=== PATIENT | male | born 1980 | race Caucasian/White ===

== ENCOUNTER 2022-09-05 14:21 | Emergency (ER) | payer OTHER ==
--- OUTSIDE RECORDS SUMMARY | 2022-09-05 14:29 | XMS REPORT | Continuity of Care Document ---
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 NO MANDIFF) SCAN (test code = NO SCAN) NEUT% (test code = 64.4 % 40-75 NEUT%) LYMPH% (test code = 21.0 % 24-44 L LYMPH%) MONO% (test code = 12.1 % 0-13 MONO%) EOS% (test code = 1.6 % 0-4 EOS%) BASO % (test code = 0.7 % 0-2 BASO%) IG (test code = IG) 0 % 0-1 IG% (test code = 0.2 % 0-1 IG% = Metam yelocytes, IG%) Myelocytes, and Promyelocytes. (Immature neutr ophils not including " bands".) > 3% IG indic ates risk of sepsis NRBC% (test code = 0 /100 WBC NRBC%) ABS NEUT (test code 6.3 K/UL 1.2-7.2 = NEUT) COVID SYMPTOMATIC ER [id number] 02:49:00 Test Item Value Reference Range Interpretation Comments CORONAVIRUS (COVID-19)BY PCR (test NEGATIVE code = [id number]) [id number] 09:12:00 Test Item Value Reference Range Interpretation Comments Sodium (test code = 137 mmol/l 137-145 NA) Potassium (test 4.5 mmol/l 3.5-5.1 code = K) Chloride (test code 106 mmol/l 98-107 = CL) Calcium (test code 9.0 mg/dl 8.5-10.1 = CALC) CO2 (test code = 25 mmol/l 21-32 CO2) Glucose (test code 103 mg/dl 74-106 = GLU) BUN (test code = 15.0 mg/dl 7.0-18.0 BUN) Creatinine (test 1.3 mg/dl 0.5-1.3 code = CREA) T Protein (test 7.6 gm/dl 6.4-8.2 code = TP) Albumin (test code 3.8 gm/dl 3.4-5.0 = ALB) A/G Ratio (test 1.0 % 1.1-2.2 L code = AGRAT) AST (SGOT) (test 20 U/L 15-37 code = AST) ALT (SGPT) (test 50 U/L 13-61 code = ALT) Alkaline Phos (test 131 U/L 45-117 H code = ALKP) Total Bilirubin 0.6 mg/dl 0.2-1.0 (test code = TBIL) Globulin (test code 3.8 gm/dl 2.3-3.5 H = GLOBU) Calcium, Corrected 9.2 mg/dl 8.4-10.2 Various f ormulas exist (test code = for corrected s vanna CALCCORR) calcium results , each yielding differ ent values. This co rrected result was base d on the formula: Co rrected Calcium = Serum Calcium + [0.8 * ( 4 - SerumAlbumin)] EGFR if >60 Finnish (test code mL/min/1.73m\\ = EGFRAA) S\\2 EGFR if Non- >60 Estimate d Glomerular Finnish (test code mL/min/1.73m\\ Filtrat ion Rate (eGFR) = EGFRNA) S\\2 Reference Inter vals Decision Points for 18 years and older and average body ma ss: >= 60 Does not exc lude kidney disease. 30 - 59 Suggests mod erate chronic kidney disease and indicates t he need for further investigation including asses sment of proteinuria and cardiovascular factors. < 30 U sually indicates a nee d for referral for assessment and management of c hronic kidney failure. STLMLCBC WITH AUTO [id number] 09:10:00 Test Item Value Reference Range Interpretation Comments WBC (test code = 6.79 10\\S\\3/ul 4.80-10.80 WBC) RBC (test code = 5.59 10\\S\\6/ul 4.70-6.10 RBC) Hemoglobin (test 18.2 gm/dl 14.0-18.0 H code = HGB) Hematocrit (test 52.2 % 42.0-50.0 H code = HCT) MCV (test code = 93.4 fL 80.0-94.0 MCV) MCH (test code = 32.6 pg 27.0-31.0 H MCH) MCHC (test code = 34.9 gm/dl 33.0-37.0 MCHC) RDW (test code = 13.4 % 11.5-14.5 RDWVC) Platelet (test code 216 10\\S\\3/ul 130-400 = PLT) MPV (test code = 11.1 fL 7.4-10.4 A "NOT MEASUR ED" MPV) RESULTS ARE DIS PLAYED WHEN THE INSTRU MENT HAS A SUPPRESSE D OR UNREPORTABLE RE SULT. THIS WILL MOST OFTEN HAPPEN WITH THE MPV WHEN THERE IS A N ABNORMAL PLATEL ET DISTRIBUTION DU E TO A CRITICAL LOW VA LUE OR PLATELET CLUMPI NG. THE RDW MAY BE SUPPRESSED IF T HERE ARE MULTIPLE PE AKS PRESENT ON THE RBC HISTOGRAM. IN T HIS CASE, A MANUAL REVIEW OF THE SLIDE WI LL BE PERFORMED, AND RBC MORPHOLOGY WILL BE NOTED ON THE RE PORT. NE% (test code = 49.1 % 42.0-75.0 NE) LY% (test code = 35.1 % 13.0-42.0 LY) MO% (test code = 11.9 % 4.0-14.0 MO) EO% (test code = 2.9 % 1.0-5.0 EO) BA% (test code = 0.9 % 0.0-3.0 BA) IG% (test code = 0.1 % 0.0-0.4 IG%) NRBC, Auto (test 0 /100WBC 0-2 code = NRBC_AUTO) STLMLTSH (Ultra Sensitive)2021-01-12 09:10:00 Test Item Value Reference Range Interpretation Comments TSH (test code = TSH) 0.59 mIU/L 0.35-3.74 STLMLRPR FOR SERUM [id number] 23:41:00 Test Item Value Reference Range Interpretation Comments RPR (test code = NONREACTIVE NONREACTIVE NR = NON- REACTIVE R = RPR) REACTIVE THYROID STIMULATION [id number] 10:15:00 Test Item Value Reference Range Interpretation Comments TSH (test code = TSH) 0.73 UIU/ML 0.465-4.68 % HEMOGLOBIN A1C (GLYCATED)2020-06-15 10:13:00 Test Item Value Reference Range Interpretation Comments HEMOGLOBIN A1C (test 4.8 % 0-6 THERAP EUTIC TARGET FOR code = GLYCO-) THE TREATMENT OF DIABETES MELL US PATIENTS IS < 7 % HBA1C. [employer] [facility] [employer] DIABETES CARE 2002;25:S33-S49 HEPATITIS C ANTIBODY [id number] 10:02:00 Test Item Value Reference Range Interpretation Comments SCRN HCV (test code NEGATIVE NEGATIVE Hepatiti s C Antibody test = SCRN HCV) is for screenin g purposes only. All react therese will be confirmed by additional test ing. ER SCREEN FOR HIV 10:02:00 Test Item Value Reference Range Interpretation Comments HIV 1/2 AB (test NEGATIVE NEGATIVE This test i s used for code = SCRN HIV) SCREENING p urposes only. All reactive re sults are prelimenary and confirmation re sults will follow. LIPID [id number] 09:30:00 Test Item Value Reference Range Interpretation Comments CHOLEST (test code = 175 MG/DL 0-200 CHOLEST) TRIGLYCE (test code = 164 MG/DL 0-150 H TRIGLYCE) HDL (test code = HDL) 41 MG/DL 30-65 NEGATI VE RISK FACTOR FOR HEART DISEA SE IF HDL >/=60 mg/dl MAJOR RISK FACTOR FOR HEART DISEASE IF HDL <40 mg/dL CALC LDL (test code = 101 MG/DL See_Comment H [Auto mated message] CALC LDL) The system e27 generated this result transmitted ref erence range: -100. Th e reference range was not used to interpr et this result as normal/abnormal . Specimen source [id number] 22:32:00 Test Item Value Reference Range Interpretation Comments Respiratory Virus Source Nasopharyngeal Swab (test code = 12107-5) GIO MosquedaJksbtqHBFH-HjR-2 RNA Resp Ql [id number] 22:32:00 Test Item Value Reference Range Interpretation Comments Coronavirus (COVID-19)(PCR) (test NEGATIVE Negative code = 63868-5) GIO MosquedaFLUAV RNA Nph Ql [id number]+[id number]-[id number] 22:32:00 Test Item Value Reference Range Interpretation Comments Influenza Virus Type A (PCR) (test NEGATIVE Negative code = 29707-6) GIO MosquedaFLUBV RNA Nph Ql [id number]+cnm-[id number] 22:32:00 Test Item Value Reference Range Interpretation Comments Influenza Virus Type B (PCR) (test NEGATIVE Negative code = 43150-6) GIO MosquedaRSV RNA Nph Ql DHRUV+fwi-[id number] 22:32:00 Test Item Value Reference Range Interpretation Comments Respiratory Syncytial Virus (PCR) NEGATIVE Negative (test code = 45426-5) GIO MosquedaIs patient employed in a healthcare [id number] 22:32:00 Test Item Value Reference Range Interpretation Comments N/A (test code = 13017-2) No [facility] HealthPatient has symptoms for condition of [id number] 22:32:00 Test Item Value Reference Range Interpretation Comments N/A (test code = 16328-5) No [id number] 22:32:00 Test Item Value Reference Range Interpretation Comments N/A (test code = 20859-2) No [facility] HealthPatient resides in congregate care [id number] 22:32:00 Test Item Value Reference Range Interpretation Comments N/A (test code = 69027-9) No GIO MosquedaUrinalysis specimen collection [id number] 18:27:00 Test Item Value Reference Range Interpretation Comments Urine Source (test code = 91176-0) URINE [facility] by [id number] 18:27:00 Test Item Value Reference Range Interpretation Comments Urine Color (test code = 88976-6) Yellow Yel-Dena * [facility]rine clarity [id number] 18:27:00 Test Item Value Reference Range Interpretation Comments Urine Appearance (test code = 65366-1) Clear Clear * [facility] HealthUrine pH measurement by automated test [id number] 18:27:00 Test Item Value Reference Range Interpretation Comments Urine pH (test code = 95315-9) 6.0 5.0-8.0 [facility] HealthSpecific gravity of Urine by Automated test [id number] 18:27:00 Test Item Value Reference Range Interpretation Comments Urine Specific [place] (test code = 1.023 1.005-1.030 90434-7) [facility] HealthUrine protein measurement by automated test strip (mass/volume) 2020-06-14 18:27:00 Test Item Value Reference Range Interpretation Comments Urine Protein (test code = 93970-5) 30 Negative * [facility] HealthUrine glucose measurement by automated test strip (mass/volume) 2020-06-14 18:27:00 Test Item Value Reference Range Interpretation Comments Urine Glucose (UA) (test code = Negative Negative * 26344-7) [facility] HealthKetones [Mass/volume] in Urine by Automated test [id number] 18:27:00 Test Item Value Reference Range Interpretation Comments Urine Ketones (test code = 95684-8) Trace Negative * [facility] HealthUrine erythrocytes count by automated test strip (number/volume) 2020-06-14 18:27:00 Test Item Value Reference Range Interpretation Comments Urine Occult Blood (test code = Negative Negative * 07000-2) [facility] HealthUrine nitrite detection by automated test [id number] 18:27:00 Test Item Value Reference Range Interpretation Comments Urine Nitrite (test code = 43806-8) Negative Negative [facility]rine total bilirubin measurement by automated test strip (mass/volume)2020-06-14 18:27:00 Test Item Value Reference Range Interpretation Comments Urine Bilirubin (test code = Negative Negative 11787-1) [facility] HealthUrine urobilinogen measurement by automated test strip (mass/volume)2020-06-14 18:27:00 Test Item Value Reference Range Interpretation Comments Urine Urobilinogen (test code = 3.0 0.0-1.0 51496-2) [facility] HealthUrine leukocytes count by automated test strip (number/volume) 2020-06-14 18:27:00 Test Item Value Reference Range Interpretation Comments Urine Leukocyte Esterase (test code Negative Negative = 50946-2) [facility] HealthMicroscopic examination of [id number] 18:27:00 Test Item Value Reference Range Interpretation Comments Microscopic Urinalysis (T) (test code = ----- 99630-8) [facility] HealthUrine sediment erythrocyte count by microscopy (number/high power field)2020-06-14 18:27:00 Test Item Value Reference Range Interpretation Comments Urine RBC (test code = 95962-8) 0-2 0-2 [facility] HealthUrine sediment leukocyte count by microscopy (number/high power field)2020-06-14 18:27:00 Test Item Value Reference Range Interpretation Comments Urine WBC (test code = 5821-4) 6-20 0-5 [facility] HealthUrine sediment epithelial cell count by microscopy (number/high power field)2020-06-14 18:27:00 Test Item Value Reference Range Interpretation Comments Urine Epithelial Cells (test code = None Seen Few 5787-7) [facility] HealthUrine sediment crystal count by microscopy (number/high power field)2020-06-14 18:27:00 Test Item Value Reference Range Interpretation Comments Urine Crystals (test code = None Seen None * 57268-9) [facility] HealthUrine sediment bacteria count by microscopy (number/high power field)2020-06-14 18:27:00 Test Item Value Reference Range Interpretation Comments Urine Bacteria (test code = 5769-5) Few None [facility] HealthUrine sediment casts count by microscopy (number/low power field) 2020-06-14 18:27:00 Test Item Value Reference Range Interpretation Comments Urine Casts (test code = 9842-6) Present None * [facility] HealthUrine sediment hyaline cast count by microscopy (number/low power field)2020-06-14 18:27:00 Test Item Value Reference Range Interpretation Comments Urine Hyaline Casts (test code = 2-5 0-1 5796-8) [facility] HealthYeast detection in urine sediment by light [id number] 18:27:00 Test Item Value Reference Range Interpretation Comments Urine Yeast (test code = 84464-0) None Seen None [facility] HealthSpermatozoa detection in urine sediment by light microscopy 2020-06-14 18:27:00 Test Item Value Reference Range Interpretation Comments Urine Sperm (test code = 8248-7) Frequent None [facility] comment 18:27:00 Test Item Value Reference Range Interpretation Comments Urinalysis Comment (test * See_Comment [A utomated message] The code = 8262-8) system which generated this result tra nsmitted reference range : *. The reference range was not used to interpr et this result as normal/abnormal . [facility] comment 18:27:00 Test Item Value Reference Range Interpretation Comments Urine Culture Indicated (test code To follow = 8264-4) [facility] HealthUrine methamphetamine [id number] 18:27:00 Test Item Value Reference Range Interpretation Comments Urine Methamphetamines Screen (test Negative Mvzalw=036 code = 35016-0) [facility] HealthUrine propoxyphene screening [id number] 18:27:00 Test Item Value Reference Range Interpretation Comments Urine Propoxyphene Screen (test code Negative Umrcvr=058 = 90076-0) [facility] HealthUrine amphetamines detection by screening lfkzrr8978-88-66 18:27:00 Test Item Value Reference Range Interpretation Comments Urine Amphetamines Screen (test code Negative Ekljks=984 = 32722-5) [facility] HealthUrine buprenorphine screen with reflex auqdfctcrtia2794-56-35 18:27:00 Test Item Value Reference Range Interpretation Comments Urine Buprenorphine (test code = Negative Cutoff=10 63436-5) [facility] HealthUrine barbiturates detection by screening [id number] 18:27:00 Test Item Value Reference Range Interpretation Comments Urine Barbiturates Screen (test code Negative Ixtckc=229 = 73154-5) [facility] HealthUrine benzodiazepines detection by screening [id number] 18:27:00 Test Item Value Reference Range Interpretation Comments Urine Benzodiazepines Screen (test Negative Einpqu=065 code = 42929-3) [facility] HealthUrine benzoylecgonine detection by screening [id number] 18:27:00 Test Item Value Reference Range Interpretation Comments Urine Cocaine Screen (test code = Positive Pseooy=336 32146-4) [facility] HealthUrine methadone [id number] 18:27:00 Test Item Value Reference Range Interpretation Comments Urine Methadone, Qualitative (test Negative Ylwndv=535 code = 60812-6) [facility] HealthUrine opiates screening [id number] 18:27:00 Test Item Value Reference Range Interpretation Comments Urine Opiates Screen (test code = Negative Sjonws=201 00827-2) [facility] HealthUrine phencyclidine detection by screening [id number] 18:27:00 Test Item Value Reference Range Interpretation Comments Urine Phencyclidine Screen (test Negative Cutoff=25 code = 88215-2) [facility] HealthUrine cannabinoids detection by screening [id number] 18:27:00 Test Item Value Reference Range Interpretation Comments Urine Cannabinoids (test code = Negative Cutoff=50 44789-9) [facility] HealthScreening urine tricyclic antidepressants lbbmitacf6247-61-32 18:27:00 Test Item Value Reference Range Interpretation Comments Ur Tricyclic Antidepressants Screen Negative Txpjln=631 (test code = 65664-9) [facility] HealthUrine oxycodone detection by screening kukcci2344-09-18 18:27:00 Test Item Value Reference Range Interpretation Comments Urine Oxycodone Screen (test code = Negative Xljklc=627 01579-2) [facility] HealthSpecific gravity of Urine by Automated test [id number] 18:27:00 Test Item Value Reference Range Interpretation Comments Urine Specific [place] (test code = 1.023 1.005-1.030 65955-1) [facility] HealthUrine pH measurement by automated test [id number] 18:27:00 Test Item Value Reference Range Interpretation Comments Urine pH (test code = 78082-5) 6.0 5.0-8.0 [facility] HealthUrine drug screen comment [id number] 18:27:00 Test Item Value Reference Range Interpretation Comments Urine Drug Screen Comment (test code See Note = 80857-3) [facility] HealthAutomated blood basophil count (number/volume)2020-06-14 17:28:00 Test Item Value Reference Range Interpretation Comments Basophils # (Auto) (test code = 704-7) 0.1 0-0.1 [facility] HealthAutomated blood nucleated erythrocyte count (count/volume) 2020-06-14 17:28:00 Test Item Value Reference Range Interpretation Comments Nucleated Red Blood Cells # (test code 0.00 0-0.01 = 771-6) [facility] comment [id number] 17:28:00 Test Item Value Reference Range Interpretation Comments Manual Differential (test code = Not Ind 8265-1) [facility] HealthSerum or plasma sodium measurement (moles/volume)2020-06-14 17:28:00 Test Item Value Reference Range Interpretation Comments Sodium Level (test code = 2951-2) 140 136-145 [facility] HealthSerum or plasma potassium measurement (moles/volume)2020-06-14 17:28:00 Test Item Value Reference Range Interpretation Comments Potassium Level (test code = 2823-3) 4.0 3.5-5.1 [facility] HealthSerum or plasma chloride measurement (moles/volume)2020-06-14 17:28:00 Test Item Value Reference Range Interpretation Comments Chloride Level (test code = 2075-0) 102 98-107 [facility] HealthSerum or plasma total carbon dioxide measurement (moles/volume) 2020-06-14 17:28:00 Test Item Value Reference Range Interpretation Comments Carbon Dioxide Level (test code = 2027-) [facility] HealthSerum or plasma anion gap determination (moles/volume)2020-06-14 17:28:00 Test Item Value Reference Range Interpretation Comments Anion Gap (test code = 23602-2) 15 8-18 [facility] HealthSerum or plasma urea nitrogen measurement (mass/volume)2020-06-14 17:28:00 Test Item Value Reference Range Interpretation Comments Blood Urea Nitrogen (test code = 14 - 3094-0) [facility] HealthSerum or plasma creatinine measurement (mass/volume)2020-06-14 17:28:00 Test Item Value Reference Range Interpretation Comments Creatinine (test code = 2160-0) 1.3 0.7-1.3 [facility] HealthGFR estimate [id number] 17:28:00 Test Item Value Reference Range Interpretation Comments Estimat Glomerular Filtration Rate 66 81-133 (test code = 527101850) [facility] HealthSerum or plasma glucose measurement (mass/volume)2020-06-14 17:28:00 Test Item Value Reference Range Interpretation Comments Glucose Level (test code = 2345-7) 82 60-100 [facility] HealthSerum or plasma calcium measurement (mass/volume)2020-06-14 17:28:00 Test Item Value Reference Range Interpretation Comments Calcium Level (test code = 55469-4) 9.7 8.4-10.2 [facility] HealthSerum or plasma total bilirubin measurement (mass/volume) 2020-06-14 17:28:00 Test Item Value Reference Range Interpretation Comments Total Bilirubin (test code = 1975-2) 0.6 0.2-1.2 [facility] HealthSerum or plasma aspartate aminotransferase measurement (enzymatic activity/volume)2020-06-14 17:28:00 Test Item Value Reference Range Interpretation Comments Aspartate Amino Transf (AST/SGOT) (test 23 5-34 code = 1920-8) [facility] HealthSerum or plasma alanine aminotransferase measurement (enzymatic activity/volume)2020-06-14 17:28:00 Test Item Value Reference Range Interpretation Comments Alanine Aminotransferase (ALT/SGPT) 35 0-55 (test code = 1742-6) [facility] HealthSerum or plasma protein measurement (mass/volume)2020-06-14 17:28:00 Test Item Value Reference Range Interpretation Comments Total Protein (test code = 2885-2) 8.2 6.4-8.3 [facility] HealthSerum or plasma albumin measurement (mass/volume)2020-06-14 17:28:00 Test Item Value Reference Range Interpretation Comments Albumin (test code = 1751-7) 4.6 3.5-5.0 [facility] HealthSerum or plasma alkaline phosphatase measurement (enzymatic activity/volume)2020-06-14 17:28:00 Test Item Value Reference Range Interpretation Comments Alkaline Phosphatase (test code = 132 40-150 6768-6) [facility] HealthCreatine kinase ser/vzvi6901-42-20 17:28:00 Test Item Value Reference Range Interpretation Comments Total Creatine Kinase (test code = 160 30-200 2157-6) [facility] HealthSerum or plasma free thyroxine (FT4) measurement (mass/volume) 2020-06-14 17:28:00 Test Item Value Reference Range Interpretation Comments Free Thyroxine (test code = 3024-7) 1.26 0.70-1.48 [facility] HealthSerum or plasma thyrotropin measurement with detection limit of 0.005 mIU/L or less (units/volume)2020-06-14 17:28:00 Test Item Value Reference Range Interpretation Comments Thyroid Stimulating Hormone (TSH) (test 0.53 0.35-4.94 code = 32872-8) [facility] HealthSerum or plasma triiodothyronine (T3) measurement (mass/volume) 2020-06-14 17:28:00 Test Item Value Reference Range Interpretation Comments Total Triiodothyronine (test code = 1.11 0.58-1.59 3053-6) [facility]Ser[facility] or plasma acetaminophen measurement (mass/volume)2020-06-14 17:28:00 Test Item Value Reference Range Interpretation Comments Acetaminophen Level (test code = < 0.6 10.0-30.0 3298-7) [facility] HospitalSalicylate ser/renl6549-58-18 17:28:00 Test Item Value Reference Range Interpretation Comments Salicylates Level (test code = 4024-6) < 5.0 15.0-30.0 [facility] HospitalSerum or plasma ethanol measurement (mass/volume)2020-06-14 17:28:00 Test Item Value Reference Range Interpretation Comments Ethyl Alcohol Level (test code = < 10 Not Available 5643-2) [facility] reagin antibody detection by [id number] 17:28:00 Test Item Value Reference Range Interpretation Comments Rapid Plasma Reagin (test code = Non-Reactive NonReactive 64329-4) [facility] count (number/volume)2020-06-14 17:28:00 Test Item Value Reference Range Interpretation Comments White Blood Count (test code = 6690-2) 7.1 4.5-11.5 [facility] erythrocytes automated count (number/volume)2020-06-14 17:28:00 Test Item Value Reference Range Interpretation Comments Red Blood Count (test code = 789-8) 5.44 4.4-6.2 [facility] hemoglobin measurement (mass/volume)2020-06-14 17:28:00 Test Item Value Reference Range Interpretation Comments Hemoglobin (test code = 718-7) 17.6 13.0-17.5 [facility] hematocrit (volume fraction)2020-06-14 17:28:00 Test Item Value Reference Range Interpretation Comments Hematocrit (test code = 4544-3) 50.3 39.0-52.5 [facility] HealthAutomated erythrocyte mean corpuscular volume (MCV) measurement 2020-06-14 17:28:00 Test Item Value Reference Range Interpretation Comments Mean Corpuscular Volume (test code = 93 80-94 787-2) [facility] HealthAutomated erythrocyte mean corpuscular hemoglobin (mass per erythrocyte)2020-06-14 17:28:00 Test Item Value Reference Range Interpretation Comments Mean Corpuscular Hemoglobin (test code 32.4 27.0-33.0 = 785-6) [facility] HealthAutomated erythrocyte mean corpuscular hemoglobin concentration measurement (mass/volume)2020-06-14 17:28:00 Test Item Value Reference Range Interpretation Comments Mean Corpuscular Hemoglobin Concent 35.0 33.0-37.0 (test code = 786-4) [facility] HealthAutomated erythrocyte distribution width uyxbr1756-48-48 17:28:00 Test Item Value Reference Range Interpretation Comments Red Cell Distribution Width (test code 14.2 10.7-14.5 = 788-0) [facility] HealthAutomated blood platelet count (count/volume)2020-06-14 17:28:00 Test Item Value Reference Range Interpretation Comments Platelet Count (test code = 777-3) 264 150-450 [facility]Automated blood platelet mean volume jetbbhtwnce1605-20-23 17:28:00 Test Item Value Reference Range Interpretation Comments Mean Platelet Volume (test code = 10.8 5.7-10.7 97235-0) [facility] HealthAutomated blood neutrophil count as percentage of total smknhmnzcg0803-68-48 17:28:00 Test Item Value Reference Range Interpretation Comments Neutrophils (%) (Auto) (test code = 54 47-75 770-8) [facility] HealthAutomated blood immature granulocyte count as percentage of total tzufzaombt0806-31-64 17:28:00 Test Item Value Reference Range Interpretation Comments Immature Granulocyte % (Auto) (test 0 0-0 code = 68372-8) [facility] HealthAutomated blood lymphocyte count as percentage of total rmswdysqlq8235-47-18 17:28:00 Test Item Value Reference Range Interpretation Comments Lymphocytes (%) (Auto) (test code = 32 25-44 736-9) [facility]Automated blood monocyte count as percentage of total leukocytes 2020-06-14 17:28:00 Test Item Value Reference Range Interpretation Comments Monocytes (%) (Auto) (test code = 11 3-10 5905-5) [facility]Automated blood eosinophil count as percentage of total biojbaluyw3237-76-53 17:28:00 Test Item Value Reference Range Interpretation Comments Eosinophils (%) (Auto) (test code = 1 0-7 713-8) [facility]Automated blood basophil count as percentage of total leukocytes 2020-06-14 17:28:00 Test Item Value Reference Range Interpretation Comments Basophils (%) (Auto) (test code = 1 0-1 706-2) [facility] HealthAutomated blood nucleated erythrocyte count as percentage of total turfddqlfv6980-06-13 17:28:00 Test Item Value Reference Range Interpretation Comments Nucleated Red Blood Cells % (test code 0.0 0-0.2 = 27491-8) [facility] HealthAutomated blood neutrophil count (number/volume)2020-06-14 17:28:00 Test Item Value Reference Range Interpretation Comments Neutrophils # (Auto) (test code = 3.9 1.3-6.7 751-8) [facility] HealthAutomated blood immature granulocyte count as percentage of total hnmkgkxwov2366-47-30 17:28:00 Test Item Value Reference Range Interpretation Comments Immature Granulocyte # (Auto) (test 0.0 0.0-0.0 code = 97302-9) [facility] HealthAutomated blood lymphocyte count (number/volume)2020-06-14 17:28:00 Test Item Value Reference Range Interpretation Comments Lymphocytes # (Auto) (test code = 2.3 1.4-4.1 731-0) [facility] monocytes automated count (number/volume)2020-06-14 17:28:00 Test Item Value Reference Range Interpretation Comments Monocytes # (Auto) (test code = 742-7) 0.8 0-1.3 [facility] HealthAutomated blood eosinophil qlcwr8609-86-06 17:28:00 Test Item Value Reference Range Interpretation Comments Eosinophils # (Auto) (test code = 0.1 0-0.8 711-2) [facility] HospitalEsggicCwbi-WhM-9/FLU A/B RSV [id number] 07:13:00 Test Item Value Reference Range Interpretation Comments Sars-CoV-2/FLU A/B For use under Emergency RSV PCR (test code = Use Authorization (EUA) SARSFLURSVPCR) only. Sars-CoV-2/FLU A/B Reference Range: RSV PCR (test code = Negative SARSFLURSVPCR1.1) Influenza A PCR: Negative by Nucleic Acid (test code = Amplification Influenza A PCR:) Influenza B PCR: Negative by Nucleic Acid (test code = Amplification Influenza B PCR:) RSV PCR Result: (test Negative by Nucleic Acid code = RSV PCR Amplification Result:) SARS-CoV-2 PCR Negative by PCR Result: (test code = SARS-CoV-2 PCR Result:) Drug Screen,Aoxjk3889-08-76 05:36:00 Test Item Value Reference Range Interpretation Comments Amphetamine Screen,Urine (test code Negative Negative = AMPU) Methadone Screen,Urine (test code = Negative Negative METHU) Opiate Screen,Urine (test code = Negative Negative UOPIS) Barbituates Screen,Urine (test code Negative Negative = BARBU) Benzodiazepines Screen,Urine (test Negative Negative code = UBENZS) Cocaine Screen,Urine (test code = Positive Negative A UCOCS) Cannabinoid Screen,Urine (test code Negative Negative = UTHCS) Complete Blood Count w/o [id number] 05:15:00 Test Item Value Reference Range Interpretation Comments White Blood Count (test code = 6.4 x10 3/uL 4.4-10.5 N WBCT) Red Blood Count (test code = 5.16 x10 6/uL 4.10-5.70 N RBC) Hemoglobin (test code = HGBT) 16.6 g/dL 13.4-17.4 N Hematocrit (test code = HCTT) 51.0 % 38.7-52.0 N Mean Corpuscular Volume (test 98.80 fL 80.00-100.00 N code = MCV) Mean Corpuscular Hemoglobin 32.2 pg 27.0-32.5 N (test code = MCH) Mean Corpuscular HGB Conc 32.50 g/dL 32.00-37.50 N (test code = MCHC) RDW Coefficient of Variation 15.3 % 11.5-14.5 H (test code = RDWCV) Platelet Count (test code = 255.0 x10 3/uL 140.0-440.0 N PLTT) Mean Platelet Volume (test 10.4 fL code = MPV) nRBC Abs (test code = NRBCA) 0 nRBC Pct (test code = NRBCP) 0 % Comprehensive Metabolic Vlcqy2686-05-16 05:15:00 Test Item Value Reference Range Interpretation Comments SODIUM (test code = NA) 137.0 mmol/L 136.0-145.0 N Potassium,K (test code = K) 4.7 mmol/L 3.0-5.1 N Chloride (test code = CL) 106 mmol/L 98-107 N Carbon Dioxide (test code = 22 mmol/L 20-31 N CO2) Anion Gap (test code = GAP) 10 mmol/L 5-15 N Blood Urea Nitrogen (test code 12 mg/dL 9-23 N = BUN) Creatinine (test code = CREATT) 0.98 mg/dL 0.55-1.02 N Creatinine Clr Calc Pharmacy 105.53 mL/min (test code = CRCLPHA) Estimated GFR ( [place] > 60 mL/min/1.73m2 (test code = EGFRAA) Estimated GFR (Non Afr [place] > 60 mL/min/1.73m2 (test code = EGFRNAA) BUN/Creatinine Ratio (test code 12 ratio 10-20 N = BCRATIO) Glucose (test code = GLU) 107 mg/dL 74-106 H Osmolality,Calculated (test 283.2 code = OSMOC) Calcium (test code = CA) 9.6 mg/dL 8.3-10.6 N Bilirubin,Total (test code = 0.6 mg/dL 0.2-1.1 N BILIT) Aspartate Amino Transferase 43 U/L 0-34 H (test code = AST) Alanine Aminotransferase (test 44 U/L 10-49 N code = ALT) Total Protein (test code = TP) 6.8 g/dL 5.7-8.2 N Albumin Level (test code = ALB) 4.7 g/dL 3.2-4.8 N Globulin (test code = GLOB) 2.1 mg/dL 2.3-3.5 L Albumin/Globulin Ratio (test 2.2 ratio 0.8-2.0 H code = AGRATIO) Alkaline Phosphatase (test code 128 U/L 46-116 H = ALP) Ethanol Ygujz6027-27-28 05:15:00 Test Item Value Reference Range Interpretation Comments Ethanol (test code = ETOH) 9 mg/dL Automated blood leukocyte count (number/volume)2020-04-12 18:28:00 Test Item Value Reference Range Interpretation Comments White Blood Count (test code = 6690-2) 7.9 3.6-11.2 [facility] erythrocytes automated count (number/volume)2020-04-12 18:28:00 Test Item Value Reference Range Interpretation Comments Red Blood Count (test code = 789-8) 5.26 4.06-5.63 [facility]Blood hemoglobin measurement (mass/volume)2020-04-12 18:28:00 Test Item Value Reference Range Interpretation Comments Hemoglobin (test code = 718-7) 17.0 12.5-16.5 [facility]Automated blood hematocrit (volume fraction)2020-04-12 18:28:00 Test Item Value Reference Range Interpretation Comments Hematocrit (test code = 4544-3) 48.6 36.7-47.1 [facility]Automated erythrocyte mean corpuscular volume (MCV) measurement 2020-04-12 18:28:00 Test Item Value Reference Range Interpretation Comments Mean Corpuscular Volume (test code = 92.5 78-98 787-2) [facility]Automated erythrocyte mean corpuscular hemoglobin (mass per erythrocyte)2020-04-12 18:28:00 Test Item Value Reference Range Interpretation Comments Mean Corpuscular Hemoglobin (test code 32.3 26-34 = 785-6) [facility]Automated erythrocyte mean corpuscular hemoglobin concentration (MCHC) measurement (mass/volume)2020-04-12 18:28:00 Test Item Value Reference Range Interpretation Comments Mean Corpuscular Hemoglobin Concent 35.0 31-35 (test code = 786-4) [facility]Automated erythrocyte distribution width eznnx1651-79-59 18:28:00 Test Item Value Reference Range Interpretation Comments Red Cell Distribution Width (test code 15.0 12.5-14.5 = 788-0) [facility]Automated blood platelet count (count/volume)2020-04-12 18:28:00 Test Item Value Reference Range Interpretation Comments Platelet Count (test code = 777-3) 230 130-400 [facility]Automated blood platelet mean volume oweegotyaed9829-13-53 18:28:00 Test Item Value Reference Range Interpretation Comments Mean Platelet Volume (test code = 8.5 7.4-10.4 41436-2) [facility]Automated blood neutrophil count as percentage of total xklxmzaswp0351-02-48 18:28:00 Test Item Value Reference Range Interpretation Comments Neutrophils (%) (Auto) (test code = 52.8 43.3-76.6 770-8) [facility]Automated blood lymphocyte count as percentage of total xdywecfjos9674-32-08 18:28:00 Test Item Value Reference Range Interpretation Comments Lymphocytes (%) (Auto) (test code = 33.6 16-43.5 736-9) [facility]Automated blood monocyte count as percentage of total leukocytes 2020-04-12 18:28:00 Test Item Value Reference Range Interpretation Comments Monocytes (%) (Auto) (test code = 10.8 4.5-12.5 5905-5) [facility]ated blood eosinophil count as percentage of total hpdgmnkbgx5007-83-28 18:28:00 Test Item Value Reference Range Interpretation Comments Eosinophils (%) (Auto) (test code = 2.3 0.6-7.9 713-8) [facility]ated blood basophil count as percentage of total leukocytes 2020-04-12 18:28:00 Test Item Value Reference Range Interpretation Comments Basophils (%) (Auto) (test code = 0.5 0.2-1.4 706-2) [facility]ated blood neutrophil count (number/volume)2020-04-12 18:28:00 Test Item Value Reference Range Interpretation Comments Neutrophils # (Auto) (test code = 4.20 1.8-7.8 751-8) [facility]Automated blood lymphocyte count (number/volume)2020-04-12 18:28:00 Test Item Value Reference Range Interpretation Comments Lymphocytes # (Auto) (test code = 2.70 1.0-3.0 731-0) [facility]Automated blood monocyte count (number/volume)2020-04-12 18:28:00 Test Item Value Reference Range Interpretation Comments Monocytes # (Auto) (test code = 742-7) 0.90 0.3-1.0 [facility]Automated blood eosinophil ebqwd6792-61-62 18:28:00 Test Item Value Reference Range Interpretation Comments Eosinophils # (Auto) (test code = 0.20 0.0-0.5 711-2) [facility]Automated blood basophil count (number/volume)2020-04-12 18:28:00 Test Item Value Reference Range Interpretation Comments Basophils # (Auto) (test code = 704-7) 0.00 0.0-0.1 [facility] HealthUrine color jrsnwqlowbqsv3309-86-93 18:28:00 Test Item Value Reference Range Interpretation Comments Urine Color (test code = 5778-6) YELLOW [facility] HealthManual urine appearance ihfeaoaybkrlp3056-79-59 18:28:00 Test Item Value Reference Range Interpretation Comments Urine Appearance (test code = 5767-9) Clear [facility] HealthUrine pH measurement by test tfzvx7842-62-69 18:28:00 Test Item Value Reference Range Interpretation Comments Urine pH (test code = 5803-2) 6.0 5.0-8.0 [facility] HealthSpecific gravity of Urine by Test tfami6393-54-52 18:28:00 Test Item Value Reference Range Interpretation Comments Urine Specific [place] (test code = 1.021 1.005-1.030 5811-5) [facility] HealthUrine protein measurement by automated test strip (mass/volume) 2020-04-12 18:28:00 Test Item Value Reference Range Interpretation Comments Urine Protein (test code = 74153-0) NEGATIVE NEGATIVE [facility] HealthUrine glucose measurement by test strip (mass/volume)2020-04-12 18:28:00 Test Item Value Reference Range Interpretation Comments Urine Glucose (UA) (test code = NEGATIVE NEGATIVE 5792-7) [facility] HealthUrine ketones measurement by test strip (mass/volume)2020-04-12 18:28:00 Test Item Value Reference Range Interpretation Comments Urine Ketones (test code = 5797-6) NEGATIVE NEGATIVE [facility] HealthUrine erythrocytes count by automated test strip (number/volume) 2020-04-12 18:28:00 Test Item Value Reference Range Interpretation Comments Urine Occult Blood (test code = NEGATIVE NEGATIVE 58899-2) [facility] HealthUrine nitrite detection by automated test myvxe3717-52-65 18:28:00 Test Item Value Reference Range Interpretation Comments Urine Nitrite (test code = 01562-5) NEGATIVE NEGATIVE [facility]Urine total bilirubin detection by test srnge0892-47-70 18:28:00 Test Item Value Reference Range Interpretation Comments Urine Bilirubin (test code = 5770-3) NEGATIVE NEGATIVE [facility] HealthUrine urobilinogen measurement by test strip (mass/volume) 2020-04-12 18:28:00 Test Item Value Reference Range Interpretation Comments Urine Urobilinogen (test code = 1+ 0.2-1.0 48442-2) [facility] HealthUrine leukocyte esterase detection by edkkoecd4339-25-07 18:28:00 Test Item Value Reference Range Interpretation Comments Urine Leukocyte Esterase (test code NEGATIVE NEGATIVE = 5799-2) [facility] HealthUrine ascorbate measurement by test strip (mass/volume)2020-04-12 18:28:00 Test Item Value Reference Range Interpretation Comments Urine Ascorbic Acid Level (test code Negative Negative = 5768-7) [facility] comment [id number] 18:28:00 Test Item Value Reference Range Interpretation Comments Urine Culture Indicated (test code = NO 8265-1) [facility] HealthSerum or plasma sodium measurement (moles/volume)2020-04-12 18:28:00 Test Item Value Reference Range Interpretation Comments Sodium Level (test code = 2951-2) 138 136-145 [facility] HealthSerum or plasma potassium measurement (moles/volume)2020-04-12 18:28:00 Test Item Value Reference Range Interpretation Comments Potassium Level (test code = 2823-3) 4.7 3.5-5.1 [facility] HealthSerum or plasma chloride measurement (moles/volume)2020-04-12 18:28:00 Test Item Value Reference Range Interpretation Comments Chloride Level (test code = 2075-0) 103 101-111 [facility] HealthSerum or plasma total carbon dioxide measurement (moles/volume) 2020-04-12 18:28:00 Test Item Value Reference Range Interpretation Comments Carbon Dioxide Level (test code = 29 21-31 2027-) [facility] HealthSerum or plasma urea nitrogen measurement (mass/volume)2020-04-12 18:28:00 Test Item Value Reference Range Interpretation Comments Blood Urea Nitrogen (test code = 18 11-094-0) [facility] HealthSerum or plasma creatinine measurement (mass/volume)2020-04-12 18:28:00 Test Item Value Reference Range Interpretation Comments Creatinine (test code = 2160-0) 1.1 0.7-1.3 [facility] HealthGlomerular filtration rate (GFR) estimation/1.73 sq m using creatinine measurement with MDRD equation in black burefzh4773-29-87 18:28:00 Test Item Value Reference Range Interpretation Comments Estimated GFR () (test >60 code = 55879-1) [facility] HealthEGFR non- Rqptyqlg9898-72-98 18:28:00 Test Item Value Reference Range Interpretation Comments Estimated GFR (Non- >60 (test code = 86947-2) [facility] HealthSerum or plasma glucose measurement (mass/volume)2020-04-12 18:28:00 Test Item Value Reference Range Interpretation Comments Glucose Level (test code = 2345-7) 104 70-110 [facility] HealthSerum or plasma calcium measurement (mass/volume)2020-04-12 18:28:00 Test Item Value Reference Range Interpretation Comments Calcium Level (test code = 50936-7) 9.3 8.6-10.3 [facility] HealthSerum or plasma total bilirubin measurement (mass/volume) 2020-04-12 18:28:00 Test Item Value Reference Range Interpretation Comments Total Bilirubin (test code = 1975-2) 0.4 0.3-1.0 [facility] HealthSerum or plasma aspartate aminotransferase measurement (enzymatic activity/volume)2020-04-12 18:28:00 Test Item Value Reference Range Interpretation Comments Aspartate Amino Transf (AST/SGOT) (test 16 code = 1920-8) [facility] HealthSerum or plasma alanine aminotransferase measurement (enzymatic activity/volume)2020-04-12 18:28:00 Test Item Value Reference Range Interpretation Comments Alanine Aminotransferase (ALT/SGPT) 22 17-63 (test code = 1742-6) [facility] HealthSerum or plasma protein measurement (mass/volume)2020-04-12 18:28:00 Test Item Value Reference Range Interpretation Comments Total Protein (test code = 2885-2) 7.4 6.4-8.9 [facility] HealthSerum or plasma albumin measurement (mass/volume)2020-04-12 18:28:00 Test Item Value Reference Range Interpretation Comments Albumin (test code = 1751-7) 4.5 3.5-5.7 [facility] HealthSerum or plasma alkaline phosphatase measurement (enzymatic activity/volume)2020-04-12 18:28:00 Test Item Value Reference Range Interpretation Comments Alkaline Phosphatase (test code = 120 34-104 6768-6) [facility] HealthSerum or plasma acetaminophen measurement (mass/volume)2020-04-12 18:28:00 Test Item Value Reference Range Interpretation Comments Acetaminophen Level (test code = < 10 10-30 3298-7) [facility] HealthSalicylate ser/yolk1362-03-16 18:28:00 Test Item Value Reference Range Interpretation Comments Salicylates Level (test code = 4024-6) < 1.5 0-29 [facility] HealthSerum or plasma ethanol measurement (mass/volume)2020-04-12 18:28:00 Test Item Value Reference Range Interpretation Comments Ethyl Alcohol Level (test code = < 10 <10.0 5643-2) [facility] HealthUrine phencyclidine detection by screening ogccit0389-64-25 18:28:00 Test Item Value Reference Range Interpretation Comments Urine Phencyclidine Screen (test NEGATIVE NEGATIVE code = 04641-7) [facility] HealthUrine benzodiazepines detection by screening wscqiw3739-19-88 18:28:00 Test Item Value Reference Range Interpretation Comments Urine Benzodiazepines Screen (test NEGATIVE NEGATIVE code = 44974-3) [facility] HealthUrine benzoylecgonine detection by screening uoehow2834-44-22 18:28:00 Test Item Value Reference Range Interpretation Comments Urine Cocaine Screen (test code = NEGATIVE NEGATIVE 25356-6) [facility] HealthUrine amphetamine detection by screening mvxvqh8035-35-18 18:28:00 Test Item Value Reference Range Interpretation Comments Urine Amphetamines Screen (test code NEGATIVE NEGATIVE = 77937-5) [facility] HealthScreening urine carboxy-tetrahydrocannabinol (carboxy-THC) xwjylhkcr9772-03-31 18:28:00 Test Item Value Reference Range Interpretation Comments Urine Cannabinoids (test code = NEGATIVE NEGATIVE 19128-3) [facility] HealthScreening urine opiates nvqltutvg7417-41-77 18:28:00 Test Item Value Reference Range Interpretation Comments Urine Opiates Screen (test code = NEGATIVE NEGATIVE 55376-9) [facility] HealthUrine barbiturates detection by screening zqdwtz6606-32-96 18:28:00 Test Item Value Reference Range Interpretation Comments Urine Barbiturates Screen (test code NEGATIVE NEGATIVE = 38280-3) [facility] HealthScreening urine tricyclic antidepressants mdmyyjbgz0950-51-94 18:28:00 Test Item Value Reference Range Interpretation Comments Urine Tricyclic Antidepressants NEGATIVE NEGATIVE (test code = 62726-9) GIO MosquedaLITHIUM [id number] 15:02:00 Test Item Value Reference Range Interpretation Comments LITHIUM (test code = LITHIUM) <0.2 MMOL/L 0.6-1.2 L HEPATITIS C ANTIBODY [id number] 10:38:00 Test Item Value Reference Range Interpretation Comments SCRN HCV (test code NEGATIVE NEGATIVE Hepatiti s C Antibody test = SCRN HCV) is for screenin g purposes only. All react therese will be confirmed by additional test ing. ER SCREEN FOR HIV 10:38:00 Test Item Value Reference Range Interpretation Comments HIV 1/2 AB (test NEGATIVE NEGATIVE This test i s used for code = SCRN HIV) SCREENING p urposes only. All reactive re sults are prelimenary and confirmation re sults will follow. LIPID [id number] 09:50:00 Test Item Value Reference Range Interpretation Comments CHOLEST (test code = 210 MG/DL 0-200 H CHOLEST) TRIGLYCE (test code = 174 MG/DL 0-150 H TRIGLYCE) HDL (test code = HDL) 48 MG/DL 30-65 NEGATI VE RISK FACTOR FOR HEART DISEA SE IF HDL >/=60 mg/dl MAJOR RISK FACTOR FOR HEART DISEASE IF HDL <40 mg/dL CALC LDL (test code = 127 MG/DL <100 H CALC LDL) % HEMOGLOBIN A1C (GLYCATED)2020-03-20 09:50:00 Test Item Value Reference Range Interpretation Comments HEMOGLOBIN A1C (test 4.9 % 0-6 THERAP EUTIC TARGET FOR code = GLYCO-) THE TREATMENT OF DIABETES MELLIT US PATIENTS IS < 7 % HBA1C. [employer] [employer] 2002;25:S33-S49 Creatine kinase ser/rpyl8198-78-81 23:24:00 Test Item Value Reference Range Interpretation Comments Total Creatine Kinase (test code = 482 30-200 2157-6) GIO MosquedaSpecimen source [id number] 17:23:00 Test Item Value Reference Range Interpretation Comments Respiratory Virus Source Nasopharyngeal Swab (test code = 43043-3) GIO MosquedaDkgmdvEEXS-OvT-1 RNA Resp Ql DHRUV+xxwzt6277-03-98 17:23:00 Test Item Value Reference Range Interpretation Comments Coronavirus (COVID-19)(PCR) (test NEGATIVE Negative code = 35096-3) GIO MosquedaFLUAV RNA Nph Ql DHRUV+tac-fmasl5804-29-02 17:23:00 Test Item Value Reference Range Interpretation Comments Influenza Virus Type A (PCR) (test NEGATIVE Negative code = 09035-1) [facility] HealthFLUBV RNA Nph Ql DHRUV+qrv-tkkqy4234-43-02 17:23:00 Test Item Value Reference Range Interpretation Comments Influenza Virus Type B (PCR) (test NEGATIVE Negative code = 69689-1) GIO HealthRSV RNA Nph Ql DHRUV+gcd-eqihd9849-75-02 17:23:00 Test Item Value Reference Range Interpretation Comments Respiratory Syncytial Virus (PCR) NEGATIVE Negative (test code = 83725-0) [facility] employed in a healthcare avmnxes6074-58-00 17:23:00 Test Item Value Reference Range Interpretation Comments N/A (test code = 92914-0) Unknown [facility]IO HealthPatient has symptoms for condition of wznemisf2138-52-82 17:23:00 Test Item Value Reference Range Interpretation Comments N/A (test code = 02718-4) Unknown [facility] 17:23:00 Test Item Value Reference Range Interpretation Comments N/A (test code = 24110-6) Unknown [facility]IO MosquedaPatient resides in congregate care oibrizw5271-36-21 17:23:00 Test Item Value Reference Range Interpretation Comments N/A (test code = 36268-9) Unknown [facility] HospitalUrinalysis specimen collection dlvdfz3372-07-09 11:45:00 Test Item Value Reference Range Interpretation Comments Urine Source (test code = 80301-8) URINE [facility] HospitalColor of Urine by Hddd7254-73-70 11:45:00 Test Item Value Reference Range Interpretation Comments Urine Color (test code = 20856-3) Lt Yellow Yel-Dena * [facility] HospitalUrine clarity dzrsqennovubj4793-27-92 11:45:00 Test Item Value Reference Range Interpretation Comments Urine Appearance (test code = 17450-5) Clear Clear * [facility] HospitalUrine pH measurement by automated test oveoe8427-76-12 11:45:00 Test Item Value Reference Range Interpretation Comments Urine pH (test code = 81947-2) 7.0 5.0-8.0 [facility] HealthSpecific gravity of Urine by Automated test ygsqo5152-10-15 11:45:00 Test Item Value Reference Range Interpretation Comments Urine Specific [place] (test code = 1.011 1.005-1.030 03538-4) [facility] HealthUrine protein measurement by automated test strip (mass/volume) 2020-03-19 11:45:00 Test Item Value Reference Range Interpretation Comments Urine Protein (test code = 90658-1) Negative Negative * [facility] glucose measurement by automated test strip (mass/volume) 2020-03-19 11:45:00 Test Item Value Reference Range Interpretation Comments Urine Glucose (UA) (test code = Negative Negative * 24180-8) [facility] ketones measurement by automated test strip (mass/volume) 2020-03-19 11:45:00 Test Item Value Reference Range Interpretation Comments Urine Ketones (test code = 00142-9) Negative Negative * [facility] erythrocytes count by automated test strip (number/volume) 2020-03-19 11:45:00 Test Item Value Reference Range Interpretation Comments Urine Occult Blood (test code = Negative Negative * 31889-5) [facility] nitrite detection by automated test [id number] 11:45:00 Test Item Value Reference Range Interpretation Comments Urine Nitrite (test code = 69963-2) Negative Negative [facility] total bilirubin measurement by automated test strip (mass/volume)2020-03-19 11:45:00 Test Item Value Reference Range Interpretation Comments Urine Bilirubin (test code = Negative Negative 27957-6) [facility] urobilinogen measurement by automated test strip (mass/volume)2020-03-19 11:45:00 Test Item Value Reference Range Interpretation Comments Urine Urobilinogen (test code = Negative 0.0-1.0 09463-4) [facility] leukocytes count by automated test strip (number/volume) 2020-03-19 11:45:00 Test Item Value Reference Range Interpretation Comments Urine Leukocyte Esterase (test code Negative Negative = 17808-0) [facility]scopic examination of [id number] 11:45:00 Test Item Value Reference Range Interpretation Comments Microscopic Urinalysis (T) (test code Not Ind = 14499-2) [facility] comment 11:45:00 Test Item Value Reference Range Interpretation Comments Urinalysis Comment (test * See_Comment [A utomated message] The code = 8262-8) system which generated this result tra nsmitted reference range : *. The reference range was not used to interpr et this result as normal/abnormal . [facility]rine methamphetamine okczsh2303-08-92 11:45:00 Test Item Value Reference Range Interpretation Comments Urine Methamphetamines Screen (test Negative Redcvj=384 code = 34243-6) [facility] propoxyphene screening eivm6237-75-95 11:45:00 Test Item Value Reference Range Interpretation Comments Urine Propoxyphene Screen (test code Negative Juasdq=187 = 42186-3) [facility] amphetamines detection by screening qfksrs4765-44-53 11:45:00 Test Item Value Reference Range Interpretation Comments Urine Amphetamines Screen (test code Negative Pzkmuz=633 = 01075-3) [facility] buprenorphine screen with reflex yphiikbrqkuf3895-70-91 11:45:00 Test Item Value Reference Range Interpretation Comments Urine Buprenorphine (test code = Negative Cutoff=10 43052-9) [facility] barbiturates detection by screening tfqtrh1207-69-92 11:45:00 Test Item Value Reference Range Interpretation Comments Urine Barbiturates Screen (test code Negative Risvfa=962 = 19801-3) [facility] benzodiazepines detection by screening heawyg4142-37-62 11:45:00 Test Item Value Reference Range Interpretation Comments Urine Benzodiazepines Screen (test Negative Ujivrd=533 code = 37692-8) [facility] benzoylecgonine detection by screening yehtkl1386-89-32 11:45:00 Test Item Value Reference Range Interpretation Comments Urine Cocaine Screen (test code = Positive Illdvx=159 69902-3) [facility]rine methadone freeuk1577-03-32 11:45:00 Test Item Value Reference Range Interpretation Comments Urine Methadone, Qualitative (test Negative Ttiluv=720 code = 80896-2) [facility] opiates screening xtmc0613-00-10 11:45:00 Test Item Value Reference Range Interpretation Comments Urine Opiates Screen (test code = Negative Vhhodl=569 82534-1) [facility] phencyclidine detection by screening ffqjzx6702-30-54 11:45:00 Test Item Value Reference Range Interpretation Comments Urine Phencyclidine Screen (test Negative Cutoff=25 code = 37719-3) [facility] cannabinoids detection by screening gxoxbg3066-93-87 11:45:00 Test Item Value Reference Range Interpretation Comments Urine Cannabinoids (test code = Negative Cutoff=50 81595-6) [facility]Screening urine tricyclic antidepressants kpetjemqn9224-86-06 11:45:00 Test Item Value Reference Range Interpretation Comments Ur Tricyclic Antidepressants Screen Negative Edtjca=571 (test code = 52423-1) [facility] oxycodone detection by screening dusixp5940-94-76 11:45:00 Test Item Value Reference Range Interpretation Comments Urine Oxycodone Screen (test code = Negative Tvukjs=543 53539-7) [facility] HealthSpecific gravity of Urine by Automated test lplno7476-74-62 11:45:00 Test Item Value Reference Range Interpretation Comments Urine Specific [place] (test code = 1.011 1.005-1.030 26813-9) [facility] pH measurement by automated test cnqwq5339-33-97 11:45:00 Test Item Value Reference Range Interpretation Comments Urine pH (test code = 94634-3) 7.0 5.0-8.0 [facility] drug screen comment feqbvvfbqofzry2518-28-25 11:45:00 Test Item Value Reference Range Interpretation Comments Urine Drug Screen Comment (test code See Note = 03964-2) [facility] HealthAutomated blood leukocyte count (number/volume)2020-03-19 08:44:00 Test Item Value Reference Range Interpretation Comments White Blood Count (test code = 6690-2) 8.8 4.5-11.5 [facility] erythrocytes automated count (number/volume)2020-03-19 08:44:00 Test Item Value Reference Range Interpretation Comments Red Blood Count (test code = 789-8) 5.22 4.4-6.2 [facility] hemoglobin measurement (mass/volume)2020-03-19 08:44:00 Test Item Value Reference Range Interpretation Comments Hemoglobin (test code = 718-7) 17.0 13.0-17.5 [facility] HealthAutomated blood hematocrit (volume fraction)2020-03-19 08:44:00 Test Item Value Reference Range Interpretation Comments Hematocrit (test code = 4544-3) 49.1 39.0-52.5 [facility] HealthAutomated erythrocyte mean corpuscular volume (MCV) measurement 2020-03-19 08:44:00 Test Item Value Reference Range Interpretation Comments Mean Corpuscular Volume (test code = 94 80-94 787-2) [facility]Automated erythrocyte mean corpuscular hemoglobin (mass per erythrocyte)2020-03-19 08:44:00 Test Item Value Reference Range Interpretation Comments Mean Corpuscular Hemoglobin (test code 32.6 27.0-33.0 = 785-6) [facility]Automated erythrocyte mean corpuscular hemoglobin concentration measurement (mass/volume)2020-03-19 08:44:00 Test Item Value Reference Range Interpretation Comments Mean Corpuscular Hemoglobin Concent 34.6 33.0-37.0 (test code = 786-4) [facility]Automated erythrocyte distribution width hwgxp0307-36-42 08:44:00 Test Item Value Reference Range Interpretation Comments Red Cell Distribution Width (test code 14.2 10.7-14.5 = 788-0) [facility]Automated blood platelet count (count/volume)2020-03-19 08:44:00 Test Item Value Reference Range Interpretation Comments Platelet Count (test code = 777-3) 238 150-450 [facility]Automated blood platelet mean volume dmmmgelwpfg3475-26-12 08:44:00 Test Item Value Reference Range Interpretation Comments Mean Platelet Volume (test code = 9.6 5.7-10.7 43706-5) [facility] comment [id number] 08:44:00 Test Item Value Reference Range Interpretation Comments Manual Differential (test code = ----- 8265-1) [facility] HealthManual blood segmented neutrophils/100 hmhxmkvfgy3923-14-68 08:44:00 Test Item Value Reference Range Interpretation Comments Neutrophils % (Manual) (test code = 66 42-75 769-0) [facility] HealthManual blood lymphocytes/100 brmsggzwmq7775-01-41 08:44:00 Test Item Value Reference Range Interpretation Comments Lymphocytes % (Manual) (test code = 24 21-51 737-7) [facility] HealthManual blood monocytes/100 fsdeutkzoe9140-58-42 08:44:00 Test Item Value Reference Range Interpretation Comments Monocytes % (Manual) (test code = 04-26 744-3) [facility]Blood platelet detection by light raxyplnwwe9263-81-22 08:44:00 Test Item Value Reference Range Interpretation Comments Platelet Estimate (test code = Adequate 9317-9) [facility]Blood erythrocyte morphology finding nqoopkvvbxkkfy6801-07-20 08:44:00 Test Item Value Reference Range Interpretation Comments Red Blood Cell Morphology (test code = Normal 6742-1) [facility] HealthSerum or plasma sodium measurement (moles/volume)2020-03-19 08:44:00 Test Item Value Reference Range Interpretation Comments Sodium Level (test code = 2951-2) 137 136-145 [facility]um or plasma potassium measurement (moles/volume)2020-03-19 08:44:00 Test Item Value Reference Range Interpretation Comments Potassium Level (test code = 2823-3) 4.2 3.5-5.1 [facility]um or plasma chloride measurement (moles/volume)2020-03-19 08:44:00 Test Item Value Reference Range Interpretation Comments Chloride Level (test code = 2075-0) 103 98-107 [facility]um or plasma total carbon dioxide measurement (moles/volume) 2020-03-19 08:44:00 Test Item Value Reference Range Interpretation Comments Carbon Dioxide Level (test code = -2027-12) [facility]um or plasma anion gap determination (moles/volume)2020-03-19 08:44:00 Test Item Value Reference Range Interpretation Comments Anion Gap (test code = 88879-3) 12 818 [facility]Serum or plasma urea nitrogen measurement (mass/volume)2020-03-19 08:44:00 Test Item Value Reference Range Interpretation Comments Blood Urea Nitrogen (test code = 01-06 3094-0) [facility]um or plasma creatinine measurement (mass/volume)2020-03-19 08:44:00 Test Item Value Reference Range Interpretation Comments Creatinine (test code = 2160-0) 1.1 0.7-1.3 [facility] HealthGFR estimate [id number] 08:44:00 Test Item Value Reference Range Interpretation Comments Estimat Glomerular Filtration Rate 80 81-133 (test code = 513344035) [facility]um or plasma glucose measurement (mass/volume)2020-03-19 08:44:00 Test Item Value Reference Range Interpretation Comments Glucose Level (test code = 2345-7) 104 60-100 [facility]Serum or plasma calcium measurement (mass/volume)2020-03-19 08:44:00 Test Item Value Reference Range Interpretation Comments Calcium Level (test code = 06401-5) 9.2 8.4-10.2 [facility]um or plasma total bilirubin measurement (mass/volume) 2020-03-19 08:44:00 Test Item Value Reference Range Interpretation Comments Total Bilirubin (test code = 1975-2) 0.9 0.2-1.2 [facility]Serum or plasma aspartate aminotransferase measurement (enzymatic activity/volume)2020-03-19 08:44:00 Test Item Value Reference Range Interpretation Comments Aspartate Amino Transf (AST/SGOT) (test 71 5-34 code = 1920-8) [facility]um or plasma alanine aminotransferase measurement (enzymatic activity/volume)2020-03-19 08:44:00 Test Item Value Reference Range Interpretation Comments Alanine Aminotransferase (ALT/SGPT) 120 0-55 (test code = 1742-6) [facility]um or plasma protein measurement (mass/volume)2020-03-19 08:44:00 Test Item Value Reference Range Interpretation Comments Total Protein (test code = 2885-2) 7.1 6.4-8.3 [facility]um or plasma albumin measurement (mass/volume)2020-03-19 08:44:00 Test Item Value Reference Range Interpretation Comments Albumin (test code = 1751-7) 4.1 3.5-5.0 [facility]um or plasma alkaline phosphatase measurement (enzymatic activity/volume)2020-03-19 08:44:00 Test Item Value Reference Range Interpretation Comments Alkaline Phosphatase (test code = 110 40-150 6768-6) [facility]um or plasma free thyroxine (FT4) measurement (mass/volume) 2020-03-19 08:44:00 Test Item Value Reference Range Interpretation Comments Free Thyroxine (test code = 3024-7) 0.98 0.70-1.48 [facility]um or plasma thyrotropin measurement with detection limit of 0.005 mIU/L or less (units/volume)2020-03-19 08:44:00 Test Item Value Reference Range Interpretation Comments Thyroid Stimulating Hormone (TSH) (test 0.87 0.35-4.94 code = 75169-0) [facility] triiodothyronine (T3) measurement (mass/volume) 2020-03-19 08:44:00 Test Item Value Reference Range Interpretation Comments Total Triiodothyronine (test code = 0.85 0.58-1.59 3053-6) [facility] acetaminophen measurement (mass/volume)2020-03-19 08:44:00 Test Item Value Reference Range Interpretation Comments Acetaminophen Level (test code = < 0.6 10.0-30.0 3298-7) [facility]Salic[facility] ser/ftgy8766-94-54 08:44:00 Test Item Value Reference Range Interpretation Comments Salicylates Level (test code = 4024-6) < 5.0 15.0-30.0 [facility] ethanol measurement (mass/volume)2020-03-19 08:44:00 Test Item Value Reference Range Interpretation Comments Ethyl Alcohol Level (test code = < 10 Not Available 5643-2) [facility] reagin antibody detection by [id number] 08:44:00 Test Item Value Reference Range Interpretation Comments Rapid Plasma Reagin (test code = Non-Reactive NonReactive 01738-3) [facility] RSV [id number] 12:51:00 Test Item Value Reference Range Interpretation Comments Sars-CoV-2/FLU A/B For use under Emergency RSV PCR (test code = Use Authorization (EUA) SARSFLURSVPCR) only. Sars-CoV-2/FLU A/B ical-devices/emergency-u RSV PCR (test code = se-authorizations. SARSFLURSVPCR1.1) Influenza A PCR: Negative by Nucleic Acid (test code = Amplification Influenza A PCR:) Influenza B PCR: Negative by Nucleic Acid (test code = Amplification Influenza B PCR:) RSV PCR Result: (test Negative by Nucleic Acid code = RSV PCR Amplification Result:) SARS-CoV-2 PCR Negative by Nucleic Acid Result: (test code = Amplification SARS-CoV-2 PCR Result:) Drug Screen,[id number] 12:30:00 Test Item Value Reference Range Interpretation Comments PCP Phencyclidine Screen,Urine (test Negative Negative code = PCPU) Amphetamine Screen,Urine (test code Negative Negative = AMPU) Methadone Screen,Urine (test code = Negative Negative METHU) Opiate Screen,Urine (test code = Negative Negative UOPIS) Barbituates Screen,Urine (test code Negative Negative = BARBU) Benzodiazepines Screen,Urine (test Negative Negative code = UBENZS) Cocaine Screen,Urine (test code = Negative Negative UCOCS) Cannabinoid Screen,Urine (test code Negative Negative = UTHCS) Propoxyphene Screen, Urine (test Negative Negative code = UPROP) UA, Urinalysis Rflx Cult/Bfikc3503-50-36 12:30:00 Test Item Value Reference Range Interpretation Comments Color,Urine (test code = Yellow Y UCOL) Clarity,Urine (test code = Clear Clear UCLAR) PH,Urine (test code = 7.5 5.5-8.5 UPH.XX) Specific [place],Urine 1.025 1.005-1.030 N (test code = USG) Blood,Urine (test code = Negative cells/uL Negative UBLD) Protein,Urine (test code = Negative mg/dL Negative UPRO) Glucose,Urine (UA) (test Negative mg/dL Negative code = UGLU) Ketones,Urine (test code = Negative mg/dL Negative UKET) Nitrate,Urine (test code = Negative Negative UNIT) Bilirubin,Urine (test code Negative mg/dL Negative = UBIL) Urobilinogen,Urine (test 0.2 mg/dL Negative code = UURO) Leukocyte Esterase,Urine Negative cells/uL Negative (test code = ULEU) Comprehensive Metabolic [id number] 12:30:00 Test Item Value Reference Range Interpretation Comments SODIUM (test code = NA) 139.0 mmol/L 136.0-145.0 N Potassium,K (test code = K) 4.3 mmol/L 3.0-5.1 N Chloride (test code = CL) 108 mmol/L 98-107 H Carbon Dioxide (test code = 27 mmol/L 20-31 N CO2) Anion Gap (test code = GAP) 4 mmol/L 5-15 L Blood Urea Nitrogen (test code 12 mg/dL 9-23 N = BUN) Creatinine (test code = CREATT) 1.07 mg/dL 0.55-1.02 H Creatinine Clr Calc Pharmacy 106.03 mL/min (test code = CRCLPHA) Estimated GFR ( [place] > 60 mL/min/1.73m2 (test code = EGFRAA) Estimated GFR (Non Afr [place] > 60 mL/min/1.73m2 (test code = EGFRNAA) BUN/Creatinine Ratio (test code 11 ratio 10-20 N = BCRATIO) Glucose (test code = GLU) 84 mg/dL 74-106 N Osmolality,Calculated (test 286.2 code = OSMOC) Calcium (test code = CA) 9.2 mg/dL 8.3-10.6 N Bilirubin,Total (test code = 0.6 mg/dL 0.2-1.1 N BILIT) Aspartate Amino Transferase 41 U/L 0-34 H (test code = AST) Alanine Aminotransferase (test 60 U/L 10-49 H code = ALT) Total Protein (test code = TP) 6.5 g/dL 5.7-8.2 N Albumin Level (test code = ALB) 4.4 g/dL 3.2-4.8 N Globulin (test code = GLOB) 2.1 mg/dL 2.3-3.5 L Albumin/Globulin Ratio (test 2.1 ratio 0.8-2.0 H code = AGRATIO) Alkaline Phosphatase (test code 124 U/L 46-116 H = ALP) Ethanol [id number] 12:30:00 Test Item Value Reference Range Interpretation Comments Ethanol (test code = ETOH) 13 mg/dL Complete Blood Count Auto [id number] 12:30:00 Test Item Value Reference Range Interpretation Comments White Blood Count (test code = 6.6 x10 3/uL 4.4-10.5 N WBCT) Red Blood Count (test code = 5.33 x10 6/uL 4.10-5.70 N RBC) Hemoglobin (test code = HGBT) 17.6 g/dL 13.4-17.4 H Hematocrit (test code = HCTT) 51.4 % 38.7-52.0 N Mean Corpuscular Volume (test 96.40 fL 80.00-100.00 N code = MCV) Mean Corpuscular Hemoglobin 33.0 pg 27.0-32.5 H (test code = MCH) Mean Corpuscular HGB Conc 34.20 g/dL 32.00-37.50 N (test code = MCHC) RDW Coefficient of Variation 13.6 % 11.5-14.5 N (test code = RDWCV) Platelet Count (test code = 257.0 x10 3/uL 140.0-440.0 N PLTT) Mean Platelet Volume (test 10.5 fL code = MPV) Immature Granulocytes % (Auto) 0.2 % 0.0-5.0 N (test code = IMMGRAN%) Neutrophils % (Auto) (test 63.1 % 36.0-70.0 N code = NE%) Lymphocytes % (Auto) (test 25.0 % 12.0-44.0 N code = LY%) Monocytes % (Auto) (test code 9.7 % 0.0-11.0 N = MO%) Eosinophils % (Auto) (test 1.2 % 0.0-7.0 N code = EO%) Basophils % (Auto) (test code 0.8 % 0.0-2.0 N = BA%) Immature Granulocytes # (Auto) 0.01 x10 3/uL (test code = IMMGRAN#) Neutrophils # (Auto) (test 4.2 x10 3/uL 1.6-7.4 N code = NE#) Lymphocytes # (Auto) (test 1.65 x10 3/uL 0.50-4.60 N code = LY#) Monocytes # (Auto) (test code 0.64 x10 3/uL 0.00-1.20 N = MO#) Eosinophils # (Auto) (test 0.08 x10 3/uL 0.00-0.74 N code = EO#) Basophils # (Auto) (test code 0.05 x10 3/uL 0.00-0.21 N = BA#) nRBC Abs (test code = NRBCA) 0 nRBC Pct (test code = NRBCP) 0 % SARS-CoV-2 (COVID-19) RNA [Presence] in Respiratory specimen by DHRUV with probe [id number] 12:28:25 Test Item Value Reference Range Interpretation Comments SARS-CoV-2 (COVID-19) RNA Not detected Not-Detected [Presence] in Respiratory specimen by DHRUV with probe detection (test code = 25979-9) [facility] SYSTEMHemoglobin A1c [id number] 10:13:405.0 Prediabetes: 5.7 - 6.4 Diabetes: >6.4 Glycemic control for adults with diabetes: <7.0Performed At: [facility] [id number] [place], [place] [id number] Delbert Davison MD Ph:[phone] Plasma [id number] 18:46:17 Test Item Value Reference Range Interpretation Comments RPR (test code = RPR) Non-Reactive Non-Reactive Lipid [id number] 08:06:12 Test Item Value Reference Range Interpretation Comments Cholesterol Total (test code = 138 mg/dL 0-200 Cholesterol Total) Triglycerides (test code = 220 mg/dL 2-150 H Triglycerides) HDL (test code = HDL) 32 mg/dL 45-65 L Chol/HDL (test code = Chol/HDL) 4 ratio 0-5 Lipid [id number] 08:06:12 Test Item Value Reference Range Interpretation Comments Cholesterol Total (test 138 mg/dL 0-200 code = Cholesterol Total) Triglycerides (test 220 mg/dL 2-150 H code = Triglycerides) HDL (test code = HDL) 32 mg/dL 45-65 L LDL (test code = LDL) 62 mg/dL 1-99 The eq uation being used in this calculation is LDL = (Chol - HDL) - (Trig / 5) Chol/HDL (test code = 4 ratio 0-5 Chol/HDL) Urinalysis with Culture, if [id number] 17:27:20 Test Item Value Reference Range Interpretation Comments UA Color (test code = UA Dk Yellow Yellow A Color) UA Appear (test code = Cloudy Clear A UA Appear) UA pH (test code = UA 6.5 pH) UA Spec Grav (test code 1.022 SGU 1.005-1.030 = UA Spec Grav) UA Glucose (test code = Negative Negative UA Glucose) UA Bili (test code = UA Negative Negative Bili) UA Ketones (test code = Trace Negative A UA Ketones) UA Blood (test code = UA Negative Negative Blood) UA Protein (test code = 2+ Negative A UA Protein) UA Urobilinogen (test 1.0 EU/dL >0.2 code = UA Urobilinogen) UA Nitrite (test code = Negative Negative UA Nitrite) UA Leuk Est (test code = Negative Negative UA Leuk Est) UA Micro Ind? (test code Indicated Not Indicated A Re sult created by = UA Micro Ind?) rule GL_SET_UA_MICRO _IND Urinalysis [id number] 17:27:20 Test Item Value Reference Range Interpretation Comments UA WBC (test code = UA WBC) 0-5 /HPF 0-5 UA RBC (test code = UA RBC) 0-4 /HPF 0-4 UA Bacteria (test code = UA Negative /HPF Negative Bacteria) UA Squam Epithelial (test code 21-73 /LPF 0-20 A = UA Squam Epithelial) UA Mucous (test code = UA Many None Seen A Mucous) UA Hyal Cast (test code = UA 11-20 /LPF 1-6 A Hyal Cast) UA Gran Cast (test code = UA 1-6 /LPF None Seen A Gran Cast) Drugs of Abuse Screen [id number] 17:06:05 Test Item Value Reference Range Interpretation Comments Amphetamine Screen Ur Negative Negative (test code = Amphetamine Screen Ur) Barbiturate Screen Ur Negative Negative (test code = Barbiturate Screen Ur) Benzodiazepines Ur Negative Negative (test code = Benzodiazepines Ur) Cocaine Screen Ur Positive Negative A (test code = Cocaine Screen Ur) Opiate Screen Ur (test Negative Negative code = Opiate Screen Ur) U PCP Scrn (test code Negative N = U PCP Scrn) Cannabinoid Screen Ur Negative Negative This a ssay provides a (test code = preliminary mohamud lytical Cannabinoid Screen Ur) test result intended for medical purpose s only. Confirmation wi ll be sent to a Refer ence Lab only upon addit ional physician reque st.The cutoff levels u sed for this assay are as followsAmphetam ine 1000 ng/mlBarbituate s 300 ng/mlBenzodiaze pine 300 ng.ml Cocaine 3 00 ng/mlOpiates 30 0 ng/mlPCP 25 ng /mlTHC 50 ng/ml pH Ur (test code = pH 6.5 5.0-9.0 Ur) XR Chest 1 View [id number] 16:53:23Patient: ARTIE WARREN Date/Time11/23/2019 16:40 CDTReason for ExamCoughReportX-ray CHEST 1 VIEW FRONTAL:HISTORY: CoughCOMPARISON: NoneThe cardiomediastinal structures show no significant abnormality.No pleural fluid or pulmonary infiltrates are identified.The bony architecture appears intact, where adequately seen.IMPRESSION:No active cardiopulmonary process is identified. Final Dictated by: MD Alessio, Ish AraujoioDictated DT/TM: 11/23/2019 4:53 pmSigned by: MD Mccallum Ramon JulioSigned (Electronic Signature): 11/23/2019 4:53 pmCreatine Kinase MB [id number] 16:52:14 Test Item Value Reference Range Interpretation Comments CKMB (test code = CKMB) 2.2 ng/mL 0.5-3.6 CKMB % (test code = CKMB %) 0.6 % 0.0-5.0 Complete Blood Count with [id number] 16:43:26 Test Item Value Reference Range Interpretation Comments WBC (test code = WBC) 8.1 x10 4.8-10.8 RBC (test code = RBC) 5.79 x10 4.60-6.20 Hgb (test code = Hgb) 19.2 g/dL 14.0-18.0 H MCV (test code = MCV) 93.4 fL 80.0-95.0 Hct (test code = Hct) 54.1 % 38.0-52.0 H MCHC (test code = MCHC) 35.5 g/dL 31.0-36.0 RDW (test code = RDW) 13.3 % 11.5-14.5 N MCH (test code = MCH) 33.2 pg 26.0-32.0 H Platelets (test code = 226 x10 140-440 Platelets) MPV (test code = MPV) 10.4 fL 7.5-11.2 Slide Review (test code Auto N Resu lt created by = Slide Review) GL_SET_SLIDE _REVIEW_A UTO Automated [id number] 16:43:26 Test Item Value Reference Range Interpretation Comments Neutro Auto (test code = Neutro Auto) 66.5 % N Lymph Auto (test code = Lymph Auto) 21.8 % N [place] Auto (test code = [place] Auto) 10.7 % N Eos, Auto (test code = Eos, Auto) 0.4 % N Basophil Auto (test code = Basophil 0.5 % N Auto) Neutro Absolute (test code = Neutro 5.4 x10 2.7-7.3 Absolute) Lymph Absolute (test code = Lymph 1.8 x10 0.8-3.5 Absolute) [place] Absolute (test code = [place] 0.9 x10 0.3-0.9 Absolute) Eos Absolute (test code = Eos 0.0 x10 0.0-0.3 Absolute) Baso Absolute (test code = Baso 0.0 x10 0.0-0.1 Absolute) IG [id number] 16:43:26 Test Item Value Reference Range Interpretation Comments IG (test code = IG) 0 % 0-5 IG Abs (test code = IG Abs) 0 x10 N Creatine [id number] 16:39:15 Test Item Value Reference Range Interpretation Comments CK (test code = CK) 341 IntlUnit/L 39-308 H Thyroid Stimulating [id number] 16:39:15 Test Item Value Reference Range Interpretation Comments TSH (test code = TSH) 1.010 IntlUnit/mL 0.358-3.740 Acetaminophen [id number] 16:39:15 Test Item Value Reference Range Interpretation Comments Acetaminophen Level (test code = <2 mcg/mL 10-30 L Acetaminophen Level) Alcohol [id number] 16:39:15 Test Item Value Reference Range Interpretation Comments Ethanol Level (test code = Ethanol 6 mg/dL 0-13 Level) Salicylate [id number] 16:39:15 Test Item Value Reference Range Interpretation Comments Salicylate Level (test code = 3.4 mg/dL 2.8-20.0 Salicylate Level) Valproic Acid [id number] 16:39:15 Test Item Value Reference Range Interpretation Comments Valproic Acid Level (test code = 25 mcg/mL 50-100 L Valproic Acid Level) Comprehensive Metabolic [id number] 16:39:14 Test Item Value Reference Range Interpretation Comments Sodium Level (test code = 141 mmol/L 136-145 Sodium Level) Potassium Level (test code = 4.8 mmol/L 3.5-5.1 Potassium Level) Chloride Level (test code = 106 mmol/L 98-107 Chloride Level) CO2 (test code = CO2) 30 mmol/L 21-32 Anion Gap (test code = Anion 5 mmol/L 7-16 L Gap) BUN (test code = BUN) 10 mg/dL 7-18 Creatinine Level (test code = 1.3 mg/dL 0.7-1.3 Creatinine Level) Glucose Level (test code = 91 mg/dL 74-106 Glucose Level) Calcium Level (test code = 9.1 mg/dL 8.5-10.1 Calcium Level) Alk Phos (test code = Alk 128 IntlUnit/L 45-122 H Phos) Bilirubin Total (test code = 0.7 mg/dL 0.2-1.0 Bilirubin Total) Albumin Level (test code = 3.6 g/dL 3.4-5.0 Albumin Level) Protein Total (test code = 7.2 g/dL 6.4-8.2 Protein Total) ALT (test code = ALT) 41 IntlUnit/L 12-78 AST (test code = AST) 26 IntlUnit/L 10-34 Comprehensive Metabolic [id number] 16:39:14 Test Item Value Reference Range Interpretation Comments Sodium Level (test code = 141 mmol/L 136-145 Sodium Level) Potassium Level (test code 4.8 mmol/L 3.5-5.1 = Potassium Level) Chloride Level (test code 106 mmol/L 98-107 = Chloride Level) CO2 (test code = CO2) 30 mmol/L 21-32 Anion Gap (test code = 5 mmol/L 7-16 L Anion Gap) BUN (test code = BUN) 10 mg/dL 7-18 Creatinine Level (test 1.3 mg/dL 0.7-1.3 code = Creatinine Level) Glucose Level (test code = 91 mg/dL 74-106 Glucose Level) Calcium Level (test code = 9.1 mg/dL 8.5-10.1 Calcium Level) Alk Phos (test code = Alk 128 IntlUnit/L 45-122 H Phos) Bilirubin Total (test code 0.7 mg/dL 0.2-1.0 = Bilirubin Total) Albumin Level (test code = 3.6 g/dL 3.4-5.0 Albumin Level) Protein Total (test code = 7.2 g/dL 6.4-8.2 Protein Total) ALT (test code = ALT) 41 IntlUnit/L 12-78 AST (test code = AST) 26 IntlUnit/L 10-34 eGFR AA (test code = eGFR >60 mL/min/1.73 m2 N AA) eGFR Non-AA (test code = >60 mL/min/1.73 m2 N eGFR Non-AA) Comprehensive Metabolic [id number] 16:39:14 Test Item Value Reference Range Interpretation Comments Sodium Level (test code = 141 mmol/L 136-145 Sodium Level) Potassium Level (test code 4.8 mmol/L 3.5-5.1 = Potassium Level) Chloride Level (test code 106 mmol/L 98-107 = Chloride Level) CO2 (test code = CO2) 30 mmol/L 21-32 Anion Gap (test code = 5 mmol/L 7-16 L Anion Gap) BUN (test code = BUN) 10 mg/dL 7-18 Creatinine Level (test 1.3 mg/dL 0.7-1.3 code = Creatinine Level) Glucose Level (test code = 91 mg/dL 74-106 Glucose Level) Calcium Level (test code = 9.1 mg/dL 8.5-10.1 Calcium Level) Alk Phos (test code = Alk 128 IntlUnit/L 45-122 H Phos) Bilirubin Total (test code 0.7 mg/dL 0.2-1.0 = Bilirubin Total) Albumin Level (test code = 3.6 g/dL 3.4-5.0 Albumin Level) Protein Total (test code = 7.2 g/dL 6.4-8.2 Protein Total) ALT (test code = ALT) 41 IntlUnit/L 12-78 AST (test code = AST) 26 IntlUnit/L 10-34 eGFR AA (test code = eGFR >60 mL/min/1.73 m2 N AA) eGFR Non-AA (test code = >60 mL/min/1.73 m2 N eGFR Non-AA) HEPATITIS C ANTIBODY [id number] 00:04:00 Test Item Value Reference Range Interpretation Comments SCRN HCV (test code NEGATIVE NEGATIVE Hepatiti s C Antibody test = SCRN HCV) is for screenin g purposes only. All react therese will be confirmed by additional test ing. ER SCREEN FOR HIV 00:04:00 Test Item Value Reference Range Interpretation Comments HIV 1/2 AB (test NEGATIVE NEGATIVE This test i s used for code = SCRN HIV) SCREENING p urposes only. All reactive re sults are prelimenary and confirmation re sults will follow. COVID ANTIBODY [id number] 23:55:00 Test Item Value Reference Range Interpretation Comments COVID-19 TOTAL AB NEGATIVE Reactive r esults could TEST (test code = occur afte r infection and [id number]) can be indicati ve of acute or recent infec tion. Non-reactive re sults do not preclude SARS-C oV-2 infection and s hould not be used as the bella e basis for patient managem ent decisions. Resu lts must be combined with c linical observations, p atient history, and epidemiological information. Fa lse reactive results may occ ur due to cross-reactivit y from pre-existing an tibodies or other possible causes. URINE DRUG [id number] 23:17:00 Test Item Value Reference Range Interpretation Comments AMPHET (test code = NEGATIVE NEGATIVE This is an unconfirmed BAMP) screening. Resu lt are to be used for medical purposes (treat ment) only. Not inten ded for non-medical pur poses. Cut-off concent ration for a positive result for each drug: Amphetamine - 1 ,000 ng/ml Barbitura te - 200 ng/ml Benzodiaz epine - 200 ng/ml Canna binoids - 50 ng/ml Coca ine - 300 ng/ml Opiat es - 300 ng/ml PCP - 25 ng/ml BARBITURATES (test NEGATIVE NEGATIVE code = BBAR) BENZO (test code = NEGATIVE NEGATIVE BBENZ) CANNABS (test code = NEGATIVE NEGATIVE BCANN) COCAINE (test code = POSITIVE NEGATIVE A BCOC) OPIATES (test code = NEGATIVE NEGATIVE BOPI) PCP (test code = NEGATIVE NEGATIVE BMTPCP) [id number] 22:46:00 Test Item Value Reference Range Interpretation Comments GLUCOSE (test code = URGLU) NEGATIVE MG/DL NEG-100 BILIRUBN (test code = URBILI) NEGATIVE NEGATIVE KETONE (test code = URKET) NEGATIVE MG/DL NEGATIVE BLOOD (test code = URBLD) NEGATIVE UR PH (test code = URPH) 5.0 5.0-7.5 PROTEIN (test code = URPRO) NEGATIVE MG/DL NEGATIVE NITRITES (test code = URNIT) NEGATIVE NEGATIVE UROBILINGEN (test code = 0.2 EU/DL 0.2-1.0 URURO) LEUKOCYT (test code = URLEU) NEGATIVE NEGATIVE UA COLOR (test code = UA YELLOW YELLOW COLOR) CLARITY (test code = CLARITY) CLEAR CLEAR SP GRAV (test code = URSPGRAV) 1.026 1.000-1.025 H UAMICRO (test code = UAMICRO) NO BLOOD ALCOHOL (ETOH)2019-11-18 22:30:00 Test Item Value Reference Range Interpretation Comments ALCOHOL BLOOD LEVEL <10 MG/DL 0-10 Results are to be used (test code = ALC BLD) for me dical purposes (treatment) onl y. Not intended for no n medical purpose s. [id number] 22:30:00 Test Item Value Reference Range Interpretation Comments SODIUM (test code = 140 MMOL/L 137-145 NA) K+ (test code = 4.4 MMOL/L 3.5-5.1 KSERUM) CHLORIDE (test code 106 MMOL/L 98-107 = CL) CO2 (test code = 28 MMOL/L 22-30 CO2) BUN (test code = 14 MG/DL 9-20 BUN) CREA (test code = 1.4 MG/DL 0.8-1.5 CREA) GLUCOSE (test code 102 MG/DL 70-99 H Fasting glucose = GLUCOSE) normal <100 MG/ DL- [employer] recommendation* * CALCIUM (test code 10.0 MG/DL 8.4-10.2 = CABLOOD) TOTPROT (test code 6.9 G/DL 6.3-8.2 = TOTPROT) ALBUMIN (test code 4.3 G/DL 3.5-5.0 = ALBSERUM) BILITOT (test code 0.7 MG/DL 0.2-1.3 = BILITOT) AST (test code = 32 U/L 15-46 AST) PHOSALK (test code 99 U/L 38-126 = PHOSALK) ALTV (test code = 30 U/L 13-69 ALTV) GFR (test code = 61 A GFR of >9 0 GFR) mL/min/1.73m2 mL/min/1.73m2 is considered norm al. CREATINE [id number] 22:30:00 Test Item Value Reference Range Interpretation Comments CK (test code = CK) 207 U/L 55-170 H [id number] 22:08:00 Test Item Value Reference Range Interpretation Comments WBC (test code = 7.2 K/UL 3.5-10.9 WBC) RBC (test code = 5.24 M/UL 4.3-5.7 RBC) HGB (test code = 17.5 G/DL 13.0-17.9 HGB) HCT (test code = 49.9 % 38-52 HCT) MCV (test code = 95.2 FL 80-98 MCV) MCH (test code = 33.4 PG 28-32 H MCH) MCHC (test code = 35.1 G/DL 32.5-36.5 MCHC) RDW (test code = 13.6 % 11.5-14.5 RDW) PLT (test code = 221 K/UL 150-450 PLT) MPV (test code = 10.7 FL 7.4-10.4 H MPV) MANDIFF (test code = NO MANDIFF) SCAN (test code = NO SCAN) NEUT% (test code = 56.2 % 40-75 NEUT%) LYMPH% (test code = 32.9 % 24-44 LYMPH%) MONO% (test code = 8.8 % 0-13 MONO%) EOS% (test code = 1.4 % 0-4 EOS%) BASO % (test code = 0.6 % 0-2 BASO%) IG (test code = IG) 0 % 0-1 IG% (test code = 0.1 % 0-1 IG% = Metam yelocytes, IG%) Myelocytes, and Promyelocytes. (Immature neutr ophils not including " bands".) > 3% IG indic ates risk of sepsis NRBC% (test code = 0 /100 WBC NRBC%) ABS NEUT (test code 4.0 K/UL 1.2-7.2 = NEUT) Rapid Plasma [id number] 14:10:15 Test Item Value Reference Range Interpretation Comments RPR (test code = RPR) Non-Reactive Non-Reactive XR Chest 1 View [id number] 05:46:17Patient: ARTIE WARREN Date/Time05/29/2019 04:36 CSTReason for Exampsych clearance;Other (please specify)ReportXR CHEST 1 VIEW FRONTALDIAGNOSIS: Respiratory clearance for psychiatric admissionThe heart and mediastinum are normal. No consolidation or pleural fluid is seen.IMPRESSION: Negative portable chest. Final Dictated by: MD Tuttle Michael JackDictjackson DT/TM: 05/29/2019 5:45 amSigned by: MD Tuttle Michael JackSigned (Electronic Signature): 05/29/2019 5:46amDrugs of Abuse Screen [id number] 23:35:16 Test Item Value Reference Range Interpretation Comments Amphetamine Screen Ur Negative Negative (test code = Amphetamine Screen Ur) Barbiturate Screen Ur Negative Negative (test code = Barbiturate Screen Ur) Benzodiazepines Ur Negative Negative (test code = Benzodiazepines Ur) Cocaine Screen Ur Positive Negative A (test code = Cocaine Screen Ur) Opiate Screen Ur (test Negative Negative code = Opiate Screen Ur) U PCP Scrn (test code Negative N = U PCP Scrn) Cannabinoid Screen Ur Negative Negative This a ssay provides a (test code = preliminary mohamud lytical Cannabinoid Screen Ur) test result intended for medical purpose s only. Confirmation wi ll be sent to a Refer ence Lab only upon addit ional physician reque st.The cutoff levels u sed for this assay are as followsAmphetam ine 1000 ng/mlBarbituate s 300 ng/mlBenzodiaze pine 300 ng.ml Cocaine 3 00 ng/mlOpiates 30 0 ng/mlPCP 25 ng/ mlTHC 50 ng/ml pH Ur (test code = pH 6.0 5.0-9.0 Ur) Urinalysis with Culture, if [id number] 23:25:51 Test Item Value Reference Range Interpretation Comments UA Color (test code = Yellow Yellow UA Color) UA Appear (test code = Clear Clear UA Appear) UA pH (test code = UA 6.0 pH) UA Spec Grav (test 1.024 SGU 1.005-1.030 code = UA Spec Grav) UA Glucose (test code Negative Negative = UA Glucose) UA Bili (test code = Negative Negative UA Bili) UA Ketones (test code Trace Negative A = UA Ketones) UA Blood (test code = Negative Negative UA Blood) UA Protein (test code Negative Negative = UA Protein) UA Urobilinogen (test 1.0 EU/dL >0.2 code = UA Urobilinogen) UA Nitrite (test code Negative Negative = UA Nitrite) UA Leuk Est (test code Negative Negative = UA Leuk Est) UA Micro Ind? (test Not Indicated Not Indicated Result created by code = UA Micro Ind?) rule GL_SET_UA_MICRO _IN D Creatine [id number] 23:10:17 Test Item Value Reference Range Interpretation Comments CK (test code = CK) 160 IntlUnit/L 39-308 Thyroid Stimulating [id number] 23:10:17 Test Item Value Reference Range Interpretation Comments TSH (test code = TSH) 0.811 IntlUnit/mL 0.358-3.740 Alcohol [id number] 23:10:17 Test Item Value Reference Range Interpretation Comments Ethanol Level (test code = Ethanol 7 mg/dL 0-13 Level) Comprehensive Metabolic [id number] 23:10:16 Test Item Value Reference Range Interpretation Comments Sodium Level (test code = 140 mmol/L 136-145 Sodium Level) Potassium Level (test code 4.2 mmol/L 3.5-5.1 = Potassium Level) Chloride Level (test code 107 mmol/L 98-107 = Chloride Level) CO2 (test code = CO2) 29 mmol/L 21-32 Anion Gap (test code = 4 mmol/L 7-16 L Anion Gap) BUN (test code = BUN) 10 mg/dL 7-18 Creatinine Level (test 1.1 mg/dL 0.7-1.3 code = Creatinine Level) Glucose Level (test code = 95 mg/dL 74-106 Glucose Level) Calcium Level (test code = 8.1 mg/dL 8.5-10.1 L Calcium Level) Alk Phos (test code = Alk 93 IntlUnit/L 45-122 Phos) Bilirubin Total (test code 0.5 mg/dL 0.2-1.0 = Bilirubin Total) Albumin Level (test code = 3.2 g/dL 3.4-5.0 L Albumin Level) Protein Total (test code = 6.1 g/dL 6.4-8.2 L Protein Total) ALT (test code = ALT) 36 IntlUnit/L 12-78 AST (test code = AST) 27 IntlUnit/L 10-34 eGFR AA (test code = eGFR >60 mL/min/1.73 m2 N AA) Comprehensive Metabolic [id number] 23:10:16 Test Item Value Reference Range Interpretation Comments Sodium Level (test code = 140 mmol/L 136-145 Sodium Level) Potassium Level (test code 4.2 mmol/L 3.5-5.1 = Potassium Level) Chloride Level (test code 107 mmol/L 98-107 = Chloride Level) CO2 (test code = CO2) 29 mmol/L 21-32 Anion Gap (test code = 4 mmol/L 7-16 L Anion Gap) BUN (test code = BUN) 10 mg/dL 7-18 Creatinine Level (test 1.1 mg/dL 0.7-1.3 code = Creatinine Level) Glucose Level (test code = 95 mg/dL 74-106 Glucose Level) Calcium Level (test code = 8.1 mg/dL 8.5-10.1 L Calcium Level) Alk Phos (test code = Alk 93 IntlUnit/L 45-122 Phos) Bilirubin Total (test code 0.5 mg/dL 0.2-1.0 = Bilirubin Total) Albumin Level (test code = 3.2 g/dL 3.4-5.0 L Albumin Level) Protein Total (test code = 6.1 g/dL 6.4-8.2 L Protein Total) ALT (test code = ALT) 36 IntlUnit/L 12-78 AST (test code = AST) 27 IntlUnit/L 10-34 eGFR AA (test code = eGFR >60 mL/min/1.73 m2 N AA) Comprehensive Metabolic [id number] 23:10:16 Test Item Value Reference Range Interpretation Comments Sodium Level (test code = 140 mmol/L 136-145 Sodium Level) Potassium Level (test code 4.2 mmol/L 3.5-5.1 = Potassium Level) Chloride Level (test code 107 mmol/L 98-107 = Chloride Level) CO2 (test code = CO2) 29 mmol/L 21-32 Anion Gap (test code = 4 mmol/L 7-16 L Anion Gap) BUN (test code = BUN) 10 mg/dL 7-18 Creatinine Level (test 1.1 mg/dL 0.7-1.3 code = Creatinine Level) Glucose Level (test code = 95 mg/dL 74-106 Glucose Level) Calcium Level (test code = 8.1 mg/dL 8.5-10.1 L Calcium Level) Alk Phos (test code = Alk 93 IntlUnit/L 45-122 Phos) Bilirubin Total (test code 0.5 mg/dL 0.2-1.0 = Bilirubin Total) Albumin Level (test code = 3.2 g/dL 3.4-5.0 L Albumin Level) Protein Total (test code = 6.1 g/dL 6.4-8.2 L Protein Total) ALT (test code = ALT) 36 IntlUnit/L 12-78 AST (test code = AST) 27 IntlUnit/L 10-34 eGFR AA (test code = eGFR >60 mL/min/1.73 m2 N AA) eGFR Non-AA (test code = >60 mL/min/1.73 m2 N eGFR Non-AA) Complete Blood Count with [id number] 22:36:27 Test Item Value Reference Range Interpretation Comments WBC (test code = WBC) 7.9 x10 4.8-10.8 RBC (test code = RBC) 5.30 x10 4.60-6.20 Hgb (test code = Hgb) 17.3 g/dL 14.0-18.0 Hct (test code = Hct) 49.6 % 38.0-52.0 MCV (test code = MCV) 93.4 fL 80.0-95.0 RDW (test code = RDW) 16.1 % 11.5-14.5 H MCHC (test code = MCHC) 34.9 g/dL 31.0-36.0 MCH (test code = MCH) 32.6 pg 26.0-32.0 H Platelets (test code = 221 x10 140-440 Platelets) MPV (test code = MPV) 8.2 fL 7.5-11.2 Slide Review (test code Auto N Resu lt created by = Slide Review) GL_SET_SLIDE _REVIEW_A UTO Automated [id number] 22:36:27 Test Item Value Reference Range Interpretation Comments Neutro Auto (test code = Neutro Auto) 57.2 % N Lymph Auto (test code = Lymph Auto) 31.2 % N [place] Auto (test code = [place] Auto) 9.6 % N Eos, Auto (test code = Eos, Auto) 1.4 % N Basophil Auto (test code = Basophil 0.6 % N Auto) Neutro Absolute (test code = Neutro 4.5 x10 2.7-7.3 Absolute) Lymph Absolute (test code = Lymph 2.5 x10 0.8-3.5 Absolute) [place] Absolute (test code = [place] 0.8 x10 0.3-0.9 Absolute) Eos Absolute (test code = Eos 0.1 x10 0.0-0.3 Absolute) Baso Absolute (test code = Baso 0.0 x10 0.0-0.1 Absolute) URINE DRUG [id number] 09:45:00 Test Item Value Reference Range Interpretation Comments AMPHET (test code = NEGATIVE NEGATIVE This is an unconfirmed BAMP) screening. Resu lt are to be used for medical purposes (treat ment) only. Not inten ded for non-medical pur poses. Cut-off concent ration for a positive result for each drug: Amphetamine - 1 ,000 ng/ml Barbitura te - 200 ng/ml Benzodiaz epine - 200 ng/ml Canna binoids - 50 ng/ml Coca ine - 300 ng/ml Opiat es - 300 ng/ml PCP - 25 ng/ml BARBITURATES (test NEGATIVE NEGATIVE code = BBAR) BENZO (test code = NEGATIVE NEGATIVE BBENZ) CANNABS (test code = NEGATIVE NEGATIVE BCANN) COCAINE (test code = POSITIVE NEGATIVE A BCOC) OPIATES (test code = NEGATIVE NEGATIVE BOPI) PCP (test code = NEGATIVE NEGATIVE BMTPCP) [id number] 08:32:00 Test Item Value Reference Range Interpretation Comments GLUCOSE (test code = URGLU) NEGATIVE MG/DL NEG-100 BILIRUBN (test code = URBILI) NEGATIVE NEGATIVE KETONE (test code = URKET) NEGATIVE MG/DL NEGATIVE BLOOD (test code = URBLD) NEGATIVE UR PH (test code = URPH) 5.5 5.0-7.5 PROTEIN (test code = URPRO) NEGATIVE MG/DL NEGATIVE NITRITES (test code = URNIT) NEGATIVE NEGATIVE UROBILINGEN (test code = 0.2 EU/DL 0.2-1.0 URURO) LEUKOCYT (test code = URLEU) NEGATIVE NEGATIVE UA COLOR (test code = UA YELLOW YELLOW COLOR) CLARITY (test code = CLARITY) CLEAR CLEAR SP GRAV (test code = URSPGRAV) 1.022 1.000-1.025 UAMICRO (test code = UAMICRO) NO RPR FOR SERUM [id number] 18:43:00 Test Item Value Reference Range Interpretation Comments RPR (test code = NONREACTIVE NONREACTIVE NR = NON-R EACTIVE R = RPR) REACTIVE HEPATITIS C ANTIBODY [id number] 13:43:00 Test Item Value Reference Range Interpretation Comments SCRN HCV (test code NEGATIVE NEGATIVE Hepatiti s C Antibody test = SCRN HCV) is for screenin g purposes only. All react therese will be confirmed by additional test ing. ER SCREEN FOR HIV 13:43:00 Test Item Value Reference Range Interpretation Comments HIV 1/2 AB (test NEGATIVE NEGATIVE This test i s used for code = SCRN HIV) SCREENING p urposes only. All reactive re sults are prelimenary and confirmation re sults will follow. % HEMOGLOBIN A1C (GLYCATED)2019-05-09 09:29:00 Test Item Value Reference Range Interpretation Comments HEMOGLOBIN A1C (test 4.9 % 0-6 THERAP EUTIC TARGET FOR code = GLYCO-) THE TREATMENT OF DIABETES MELL US PATIENTS IS < 7 % HBA1C. [employer] DIABETES CARE 2002;25:S33-S49 [id number] 08:29:00 Test Item Value Reference Range Interpretation Comments SODIUM (test code = 142 MMOL/L 137-145 NA) K+ (test code = 4.4 MMOL/L 3.5-5.1 PLEASE NOTE NEW KSERUM) REFERENCE RANGE (S) IN EFFECT EFFECTIVE 010 - NEW ANALYZER (V ITROS 5600) CHLORIDE (test code 104 MMOL/L 98-107 = CL) CO2 (test code = 28 MMOL/L 22-30 CO2) BUN (test code = 16 MG/DL 9-20 BUN) CREA (test code = 1.0 MG/DL 0.8-1.5 CREA) GLUCOSE (test code 82 MG/DL 70-99 Fasting glucose = GLUCOSE) normal <100 MG/ DL- [employer] recommendation* * CALCIUM (test code 9.5 MG/DL 8.4-10.2 = CABLOOD) TOTPROT (test code 7.6 G/DL 6.3-8.2 = TOTPROT) ALBUMIN (test code 4.7 G/DL 3.5-5.0 = ALBSERUM) BILITOT (test code 0.5 MG/DL 0.2-1.3 = BILITOT) AST (test code = 39 U/L 15-46 AST) PHOSALK (test code 144 U/L 38-126 H = PHOSALK) ALT (test code = 44 U/L 13-69 ALT) GFR (test code = 89 A GFR of >9 0 GFR) mL/min/1.73m2 mL/min/1.73m2 is considered norm al. LIPID [id number] 08:29:00 Test Item Value Reference Range Interpretation Comments CHOLEST (test code = 194 MG/DL 0-200 CHOLEST) TRIGLYCE (test code = 156 MG/DL 0-150 H TRIGLYCE) HDL (test code = HDL) 47 MG/DL 30-65 NEGATI VE RISK FACTOR FOR HEART DISEA SE IF HDL >/=60 mg/dl MAJOR RISK FACTOR FOR HEART DISEASE IF HDL <40 mg/dL CALC LDL (test code = 116 MG/DL <100 H CALC LDL) THYROID STIMULATION [id number] 08:29:00 Test Item Value Reference Range Interpretation Comments TSH (test code = TSH) 1.25 UIU/ML 0.465-4.68 BLOOD ALCOHOL (ETOH)2019-05-09 08:29:00 Test Item Value Reference Range Interpretation Comments ALCOHOL BLOOD LEVEL <10 MG/DL 0-10 Results are to be used (test code = ALC BLD) for me dical purposes (treatment) onl y. Not intended for no n medical purpose s. [id number] 08:08:00 Test Item Value Reference Range Interpretation Comments WBC (test code = 6.6 K/UL 3.5-10.9 WBC) RBC (test code = 5.83 M/UL 4.3-5.7 H RBC) HGB (test code = 18.2 G/DL 13.0-17.9 H HGB) HCT (test code = 54.5 % 38-52 H HCT) MCV (test code = 93.5 FL 80-98 MCV) MCH (test code = 31.2 PG 28-32 MCH) MCHC (test code = 33.4 G/DL 32.5-36.5 MCHC) RDW (test code = 15.4 % 11.5-14.5 H RDW) PLT (test code = 240 K/UL 150-450 PLT) MPV (test code = 11.0 FL 7.4-10.4 H MPV) MANDIFF (test code = NO MANDIFF) SCAN (test code = NO SCAN) NEUT% (test code = 38.8 % 40-75 L NEUT%) LYMPH% (test code = 44.7 % 24-44 H LYMPH%) MONO% (test code = 13.4 % 0-13 H MONO%) EOS% (test code = 2.3 % 0-4 EOS%) BASO % (test code = 0.6 % 0-2 BASO%) IG (test code = IG) 0 % 0-1 IG% (test code = 0.2 % 0-1 IG% = Metam yelocytes, IG%) Myelocytes, and Promyelocytes. (Immature neutr ophils not including " bands".) > 3% IG indic ates risk of sepsis NRBC% (test code = 0 /100 WBC NRBC%) ABS NEUT (test code 2.6 K/UL 1.2-7.2 = NEUT) CREATINE [id number] 08:02:00 Test Item Value Reference Range Interpretation Comments CK (test code = CK) 303 U/L 55-170 H Hemoglobin A1c [id number] 16:10:334.8 Prediabetes: 5.7 - 6.4 Diabetes: >6.4 Glycemic control for adults with diabetes: <7.0Performed At: [facility] [address] [id number] Kyle L MD Ph:[phone] Lipid [id number] 07:45:37 Test Item Value Reference Range Interpretation Comments Cholesterol Total (test code = 131 mg/dL 0-200 Cholesterol Total) Triglycerides (test code = 75 mg/dL 2-150 Triglycerides) HDL (test code = HDL) 39 mg/dL 45-65 L Chol/HDL (test code = Chol/HDL) 3 ratio 0-5 Lipid [id number] 07:45:37 Test Item Value Reference Range Interpretation Comments Cholesterol Total (test 131 mg/dL 0-200 code = Cholesterol Total) Triglycerides (test 75 mg/dL 2-150 code = Triglycerides) HDL (test code = HDL) 39 mg/dL 45-65 L LDL (test code = LDL) 77 mg/dL 1-99 The eq uation being used in this calculation is LDL = (Chol - HDL) - (Trig / 5) Chol/HDL (test code = 3 ratio 0-5 Chol/HDL) Alcohol [id number] 23:31:09 Test Item Value Reference Range Interpretation Comments Ethanol Level (test code = Ethanol 4 mg/dL 0-13 Level) Acetaminophen [id number] 17:29:57<2Comprehensive Metabolic Panel 2018-12-21 17:29:45 Test Item Value Reference Range Interpretation Comments Sodium Level (test code = 144 mmol/L 136-145 Sodium Level) Potassium Level (test code = 4.5 mmol/L 3.5-5.1 Potassium Level) Chloride Level (test code = 110 mmol/L 98-107 H Chloride Level) CO2 (test code = CO2) 32 mmol/L 21-32 Anion Gap (test code = Anion 2 mmol/L 7-16 L Gap) BUN (test code = BUN) 12 mg/dL 7-18 Creatinine Level (test code = 1.2 mg/dL 0.7-1.3 Creatinine Level) Glucose Level (test code = 79 mg/dL 74-106 Glucose Level) Calcium Level (test code = 8.4 mg/dL 8.5-10.1 L Calcium Level) Alk Phos (test code = Alk 119 IntlUnit/L 45-122 Phos) Bilirubin Total (test code = 0.5 mg/dL 0.2-1.0 Bilirubin Total) Albumin Level (test code = 3.5 g/dL 3.4-5.0 Albumin Level) Protein Total (test code = 6.6 g/dL 6.4-8.2 Protein Total) ALT (test code = ALT) 30 IntlUnit/L 12-78 AST (test code = AST) 25 IntlUnit/L 10-34 Creatine [id number] 17:29:45 Test Item Value Reference Range Interpretation Comments CK (test code = CK) 147 IntlUnit/L 39-308 Thyroid Stimulating [id number] 17:29:45 Test Item Value Reference Range Interpretation Comments TSH (test code = TSH) 0.302 IntlUnit/mL 0.358-3.740 L Comprehensive Metabolic [id number] 17:29:45 Test Item Value Reference Range Interpretation Comments Sodium Level (test code = 144 mmol/L 136-145 Sodium Level) Potassium Level (test code 4.5 mmol/L 3.5-5.1 = Potassium Level) Chloride Level (test code 110 mmol/L 98-107 H = Chloride Level) CO2 (test code = CO2) 32 mmol/L 21-32 Anion Gap (test code = 2 mmol/L 7-16 L Anion Gap) BUN (test code = BUN) 12 mg/dL 7-18 Creatinine Level (test 1.2 mg/dL 0.7-1.3 code = Creatinine Level) Glucose Level (test code = 79 mg/dL 74-106 Glucose Level) Calcium Level (test code = 8.4 mg/dL 8.5-10.1 L Calcium Level) Alk Phos (test code = Alk 119 IntlUnit/L 45-122 Phos) Bilirubin Total (test code 0.5 mg/dL 0.2-1.0 = Bilirubin Total) Albumin Level (test code = 3.5 g/dL 3.4-5.0 Albumin Level) Protein Total (test code = 6.6 g/dL 6.4-8.2 Protein Total) ALT (test code = ALT) 30 IntlUnit/L 12-78 AST (test code = AST) 25 IntlUnit/L 10-34 eGFR AA (test code = eGFR >60 mL/min/1.73 m2 N AA) Salicylate [id number] 17:29:45 Test Item Value Reference Range Interpretation Comments Salicylate Level (test code = 4.1 mg/dL 2.8-20.0 Salicylate Level) Comprehensive Metabolic [id number] 17:29:45 Test Item Value Reference Range Interpretation Comments Sodium Level (test code = 144 mmol/L 136-145 Sodium Level) Potassium Level (test code 4.5 mmol/L 3.5-5.1 = Potassium Level) Chloride Level (test code 110 mmol/L 98-107 H = Chloride Level) CO2 (test code = CO2) 32 mmol/L 21-32 Anion Gap (test code = 2 mmol/L 7-16 L Anion Gap) BUN (test code = BUN) 12 mg/dL 7-18 Creatinine Level (test 1.2 mg/dL 0.7-1.3 code = Creatinine Level) Glucose Level (test code = 79 mg/dL 74-106 Glucose Level) Calcium Level (test code = 8.4 mg/dL 8.5-10.1 L Calcium Level) Alk Phos (test code = Alk 119 IntlUnit/L 45-122 Phos) Bilirubin Total (test code 0.5 mg/dL 0.2-1.0 = Bilirubin Total) Albumin Level (test code = 3.5 g/dL 3.4-5.0 Albumin Level) Protein Total (test code = 6.6 g/dL 6.4-8.2 Protein Total) ALT (test code = ALT) 30 IntlUnit/L 12-78 AST (test code = AST) 25 IntlUnit/L 10-34 eGFR AA (test code = eGFR >60 mL/min/1.73 m2 N AA) eGFR Non-AA (test code = >60 mL/min/1.73 m2 N eGFR Non-AA) Complete Blood Count with [id number] 17:05:13 Test Item Value Reference Range Interpretation Comments WBC (test code = WBC) 7.0 x10 4.8-10.8 RBC (test code = RBC) 5.19 x10 4.60-6.20 Hgb (test code = Hgb) 16.8 g/dL 14.0-18.0 MCV (test code = MCV) 94.6 fL 80.0-95.0 Hct (test code = Hct) 49.1 % 38.0-52.0 RDW (test code = RDW) 16.7 % 11.5-14.5 H MCHC (test code = MCHC) 34.2 g/dL 31.0-36.0 MCH (test code = MCH) 32.4 pg 26.0-32.0 H Platelets (test code = 218 x10 140-440 Platelets) MPV (test code = MPV) 8.6 fL 7.5-11.2 Slide Review (test code Auto N Resu lt created by = Slide Review) GL_SET_SLIDE _REVIEW_A UTO Automated [id number] 17:05:13 Test Item Value Reference Range Interpretation Comments Neutro Auto (test code = Neutro Auto) 47.0 % N Lymph Auto (test code = Lymph Auto) 40.1 % N [place] Auto (test code = [place] Auto) 9.8 % N Eos, Auto (test code = Eos, Auto) 2.4 % N Basophil Auto (test code = Basophil 0.7 % N Auto) Neutro Absolute (test code = Neutro 3.3 x10 2.7-7.3 Absolute) Lymph Absolute (test code = Lymph 2.8 x10 0.8-3.5 Absolute) [place] Absolute (test code = [place] 0.7 x10 0.3-0.9 Absolute) Eos Absolute (test code = Eos 0.2 x10 0.0-0.3 Absolute) Baso Absolute (test code = Baso 0.1 x10 0.0-0.1 Absolute) Urinalysis with Culture, if [id number] 17:00:33 Test Item Value Reference Range Interpretation Comments UA Color (test code = UA Dk Yellow Yellow A Color) UA Appear (test code = Clear Clear UA Appear) UA pH (test code = UA 5.5 pH) UA Spec Grav (test code >1.030 SGU 1.005-1.030 H = UA Spec Grav) UA Glucose (test code = Negative Negative UA Glucose) UA Bili (test code = UA Negative Negative Bili) UA Ketones (test code = Trace Negative A UA Ketones) UA Blood (test code = UA Negative Negative Blood) UA Protein (test code = Negative Negative UA Protein) UA Urobilinogen (test 0.2 EU/dL >0.2 code = UA Urobilinogen) UA Nitrite (test code = Negative Negative UA Nitrite) UA Leuk Est (test code = Negative Negative UA Leuk Est) UA Micro Ind? (test code Indicated Not Indicated A Re sult created by = UA Micro Ind?) rule GL_SET_UA_MICRO _IND Urinalysis [id number] 17:00:33 Test Item Value Reference Range Interpretation Comments UA WBC (test code = UA WBC) 0-5 /HPF 0-5 UA RBC (test code = UA RBC) 0-4 /HPF 0-4 UA Bacteria (test code = UA Negative /HPF Negative Bacteria) UA Squam Epithelial (test code 0-20 /LPF 0-20 = UA Squam Epithelial) UA Mucous (test code = UA FEW None Seen A Mucous) UA Amorph Urate (test code = UA Moderate /HPF None A Amorph Urate) UA Ca Ox Crystal (test code = Moderate /HPF None A UA Ca Ox Crystal) Drugs of Abuse Screen [id number] 16:33:26 Test Item Value Reference Range Interpretation Comments Amphetamine Screen Ur Negative Negative (test code = Amphetamine Screen Ur) Barbiturate Screen Ur Negative Negative (test code = Barbiturate Screen Ur) Benzodiazepines Ur Negative Negative (test code = Benzodiazepines Ur) Cocaine Screen Ur Positive Negative A (test code = Cocaine Screen Ur) Opiate Screen Ur (test Negative Negative code = Opiate Screen Ur) U PCP Scrn (test code Negative N = U PCP Scrn) Cannabinoid Screen Ur Negative Negative This a ssay provides a (test code = preliminary mohamud lytical Cannabinoid Screen Ur) test result intended for medical purpose s only. Confirmation wi ll be sent to a Refer ence Lab only upon addit ional physician reque st.The cutoff levels u sed for this assay are as followsAmphetam ine 1000 ng/mlBarbituate s 300 ng/mlBenzodiaze pine 300 ng.ml Cocaine 300 ng/mlOpiates 30 0 ng/mlPCP 25 ng/ mlTHC 50 ng/ml pH Ur (test code = pH 5.0 5.0-9.0 Ur) [id number] 12:36:[address] [id number] IMAGING REPORTPatient Name: Glenn WARREN of Service: [id number]: 36 Sex: M Order #: [id number] [facility] 1980 [facility] Number: [id number] Record Number: [id number] Hospital Number: [id number] Physician: Laurel PRUETT Physician: KIAH POWERS XR 2 VIEWS, RIBSHISTORY: Trauma, left rib pain, difficulty breathingCOMPARISON: NoneFINDINGS AND IMPRESSION:Chest:No focal airspace consolidation, pleural effusion, or pneumothorax ispresent. The heart is normal in size.Left-sided RIBS:Scoliosis of the thoracic spine is present.A metallic focus projects over the left lower ribs.No overt displaced fracture is identified.Electronically Signed By: Gurjit Clark, 10/12/2016 12:34 PMLegally authenticated by VAISHALI VO 2016-10-12 12:34:07CHEST XR 2 [id number] 12:36:[place] [id number] IMAGING REPORTPatient Name: Glenn WARREN of Service: [id number]: 36 Sex: M Order #: [id number] Room: ERSDOB: 1980 X-Ray Number: [id number] Record Number: [id number] Hospital Number: [id number] Physician: Laurel PRUETT Physician: SHANEKA VAZQUEZ XR 2 VIEWS, RIBSHISTORY: Trauma, leftrib pain, difficulty breathingCOMPARISON: NoneFINDINGS AND IMPRESSION:Chest:No focal airspace consolidation, pleural effusion, or pneumothorax ispresent. The heart is normal in size.Left-sided RIBS:Scoliosis of the thoracic spine is present.A metallic focus projects over the left lower ribs.No overt displaced fracture is identified.Electronically Signed By: Gurjit Clark, 10/12/2016 12:34 PMLegally authenticated by VAISHALI VO 2016-10-12 12:34:07SPINE LUMBAR [id number] 15:25:00[place] [id number] IMAGING REPORTPatient Name: Glenn WARREN of Service: [id number]: 36 Sex: M Order #: [id number] Room: ERSDOB: 1980 X-Ray Number: [id number] Record Number: [id number] Hospital Number: [id number] Physician: HUNG BARRETO Physician: JELENA BOSS FARRAUMBANALIA SPINE 5 VIEWS:CLINICAL HISTORY: Fell down some stairs today; back painTECHNIQUE: AP, lateral, bilateral oblique and coned-down lateral views wereobtainedFINDINGS: There is mild scoliosis of the mid lumbar spine present convex tothe left.there is no fracture or dislocation demonstrated.There are mild degenerative changes seen in the articular facets at L5-S1.Incidentally noted are surgical clips in the right upper quadrantconsistent with the previous cholecystectomy.Impression: No evidence of acute bony injury to the lumbar spine.Electronically Signed By: Yang Kolb M.D., 07/15/2016 3:22 PMLegallalix authenticated by ELEONORA Nair 2016-07-15 15:22:40C-SPINE [id number] 15:23:00[place] [id number] IMAGING REPORTPat ient Name: Glenn WARREN of Service: [id number]: 36 Sex: M Order #: [id number] Room: ERSDOB: 1980 X-Ray Number: [id number] Record Number: [id number] Hospital Number: [id number] Physician: HUNG BARRETO Physician: JELENA BOSS SPINE FIVE VIEWS:CLINICAL HISTORY: Fell down some stairs today; neck stiffnessTECHNIQUE: AP, lateral, bilateral oblique and odontoid views wereobtained.FINDINGS: The prevertebral soft tissues are normal. There is no evidenceof fractureor dislocation. The neural foramina are patent.IMPRESSION:Normal cervical spineElectronically SignedBy: Yang Kolb M.D., 07/15/2016 3:20 PMLegally authenticated by ELEONORA Nair 2016-07-15 15:20:48 Notes Date/Time Note Provider Source 2020-06-19 SHAGGY GAYTAN BHSSET 14:14:31-00:[address] [address] Patient Name: ARTIE WARREN Patient#: [id number] Admission Date: 06/15/2020 Discharge Date: Age/Gender: 40/M Date of : 1980 HSSV//BED: [facility]/301/G Admitting Phys: Shaggy Gaytan MD DISCHARGE SUMMARY DATE OF ADMISSION: 06/15/2020 DATE OF DISCHARGE: ADMISSION DIAGNOSES Substance use disorder and substance-induced psy chosis. DISCHARGE DIAGNOSES Substance use disorder and substance-induced psy chosis. REASON FOR HOSPITALIZATION Acute reported homicidal ideation, paranoid delu sions, and psychosis in context of substance abuse with cocaine. HOSPITAL COURSE Artie Warren is a 40-year-old male, with a past psych history of substance use disorder and substance-ind uced psychosis, who presents for acute reported homicidal ideation towards his brother with multiple paranoid delusions regarding brother and in the context of chr onic and acute substance intoxication with cocaine, non-medication compli ance, and non-treatment compliance. The patient, on admission, was gross ly psychotic with frequent stare inappropriately directly at people, and you d multiple paranoid delusions and continued homicidal ideation towards his bro ther. He minimizes his substance issues, but then irritability stated that "Yes, I still do cocaine." He denies following up or taking medications at home, and on initial assessment, he was started back on his home medications of R isperdal 2 mg b.i.d. and lithium 300 mg b.i.d. with meals along with Cogentin. Ho wever, patient consistently refused to be medically compliant the first few days. Of note, patient initially also presented with some sever e psoriatic erythema on face with some scaling. DG was consulted, and the patient was t reated and saw improvement as well. After a couple of days, patient finally be came compliant with lithium but still refusing Risperdal, citing bad side effect s in the past; however, I reminded him that he was titrated on this at the last admission and tolerated it fine without any issue. However, to work with th e patient, this was transitioned to Zyprexa therapy, which he tolera garrison well. On day of probable cause hearing, the patient was seen by Probable Cause and court judgment was ruled to not meet involuntary inpatient criteria , and PC was not approved. The patient then subsequently refused to sign in [facility] untarily and as such, he will be discharged against medical advice at present. LABORATORY DATA Hep C screen negative. HIV screen negative. Lipi d panel showed elevation in triglycerides at 164 and LDL 101. TSH 0.73. RPR nonreactive. A1c 4.8. UDS in the ER was positive for cocaine. Legally authenticated by ROSAURA LEE 2020-06-20 02: 42:01 TREATMENT PROVIDED DURING ADMISSION Psychopharmacological management, individual/charles up activity, milieu therapy, safety assessment, discharge planning, treatment team meetings, and probable cause hearing which was held on June 19 and wa s subsequently not approved, and patient refused to sign in voluntarily after and at this time, he will be discharged against medical advice. MENTAL STATUS EXAM AT DISCHARGE Appearance is relatively groomed, but still have facial redness. Orientation A/O x4. Speech is mostly normal rate, rhythm, vo lume. Mood is reported as good, but affect is still mildly blunted. Though t process logical, linear, and coherent. Suicidal ideation and homicidal ideati on denied. Auditory or visual hallucinations denied. Delusions, still some par anoia and grandiosity. Insight is poor and judgment is poor. PLAN At this time, patient is being discharged. He wi ll return home in [place] upon discharge. The patient was seen by Probable Caus e and was released by court and refused to sign in voluntarily, and therefore th is discharge will be against medical advice. Prescription will not be given, given patient is discharging against medical advice and followup will not be made given patient is discharging against medical advice. The patient was in agreement with [facility] discharge plan and states should he experience n ew or worsening symptoms in the future, he will call 911 or return to the [facility] ER immediately. DISCHARGE MEDICATIONS None, given patient is discharging against medic al advice. Shaggy Gaytan MD TT: 06/19/2020 14:14:31 LINK/MODL /[id number] Electronically Authenticated by: Dr. Shaggy Gaytan on 06/20/2020 02:42 PM ACCOUNT MANAGEMENT ASSISTANT Legally authenticated by ROSAURA LEE 2020-06-20 02: 42:01 2020-06-18 SHAGGY GAYTAN 13:49:10-00:[address] [address] Patient Name: ARTIE WARREN Patient#: [id number] Admission Date: 06/15/2020 Date of : 1980 Age/Gender: 40/M HSSV/RM/BED: [facility]/301/G Admitting Phys: Shaggy Gaytan MD PROGRESS NOTE DATE: 06/18/2020 SUBJECTIVE Mr. Warren has finally been compliant with his lithium therapy at minimum starting last night, which is good. At this time , he continues to refuse benztropine and Risperdal therapy despite he has a history of good tolerance of this. He is stating that he gets some side effec t and I again reminded him that we observed him previously. However, given that his main resistance is to the medication Risperdal, I asked him if we choose a n alternative would he be compliant with medication treatment, which he st ated that he would, so we discussed alternative therapy with Zyprexa. Of n ote, the patient's mood is improving. I think he is less irritable and is m ore cooperative during examination. Of note, my medical student did not participate in the exam due to the patient making homicidal ideation threats to wards the medical student on Tuesday, although at present he has not endorsed any of those threats again. Given the patient has been becoming med complian t, we will be beginning Zyprexa therapy at present at 10 mg q.h.s. and the patie nt is agreeable. We will see how this will affect the patient's overall sympt om improvement, as I believe he will significantly improve in terms of his acute psychosis and delusions. DIAGNOSES At this time, substance use disorder, substance- induced psychosis and schizoaffective disorder. PLAN Discontinue Risperdal in lieu of Zyprexa 10 mg q .h.s. given patient preference. The patient has now been compliant with lithium therapy at minimal. We will continue to monitor for symptoms and withdrawal. Of note, the patient's psoriasis has continued to worsen. I have consul garrison the DG group to evaluate the patient's face for erythema, most likely sug gestive of psoriasis. Shaggy Gaytan MD TT: 06/18/2020 13:49:10 LINK/MINDI /[id number] Electronically Authenticated by: Dr. Shaggy Gaytan on 06/20/2020 02:41 PM ACCOUNT MANAGEMENT ASSISTANT Legally authenticated by ROSAURA LEE 2020-06-20: 41:59 2020-06-17 SHAGGY GAYTAN 13:49:01-00:00 [place] [id number] Patient Name: ARTIE WARREN Patient#: [id number] Admission Date: Date of : 1980 Age/Gender: 40/M HSSV/RM/BED: / Admitting Phys: PROGRESS NOTE DATE: 06/17/2020 I spoke with Mr. Warren today. He was still monse y irritable. He is still having multiple paranoid persecutory delusions a nd still holds HI toward his brother. When asked him if he had HI for brother , he initially actually was she was very evasive too and he stated that, I do not want to say because if I say it I will get in trouble with the law, but then later endorsed, he is still having HI. At this time, he has been completely med compliant, resisting medication and at this time, he has been committ ed full due to he signed a 4- hour letter that was injected and he sub sequently saw court yesterday and will be committed at present. We anticipate likely fu ll med for patient given he has not been compliant with medication. We will be n ot titrating medication at present. DIAGNOSES Substance use disorder and schizoaffective disor kylie. PLAN To continue current treatment plan and file for full med hearing likely later this week. Shaggy Gaytan MD TT: 06/17/2020 13:49:01 LINK/MINDI /[id number] Electronically Authenticated by: Dr. Shaggy Gaytan on 06/18/2020 02:08 PM ACCOUNT MANAGEMENT ASSISTANT Legally authenticated by ROSAURA LEE 2020-06-18 02: 08:05 2020-06-16 TRINA WAYNE 15:42:07-00:[address] [address] Patient Name: ARTIE WARREN Patient#: [id number] Admission Date: Date of : 1980 Age/Gender: 40/M HSSV/RM/BED: / Admitting Phys: PROGRESS NOTE DATE: 06/16/2020 SUBJECTIVE Patient reports he is doing okay, but he does re port that he is tired of people talking about him. He denies suicidal thoughts o r homicidal thoughts. He does report thoughts of harming others and points tow ayla the medical student. He does deny auditory and visual hallucinations, de nies problems eating and problems with sleep. OBJECTIVE Patient is alert and oriented to person and situ ation. His affect is elated. His speech is within normal limits. He is pleasa nt upon approach, but is responding to internal stimuli. He is also refus ing medication, is not cooperative with care plan. ASSESSMENT Substance use disorder and substance-induced psy chosis. PLAN Continue current treatment plan. Await probable cause hearing on , await full hearing and medication hearing. DICTATED BY: HARITHA SandyP, Shaggy Gaytan MD TT: 06/16/2020 15:42:07 KATHERINE/ROSHANL /[id number] Electronically Authenticated by: Dr. Shaggy Gaytan on 06/17/2020 08:31 AM ACCOUNT MANAGEMENT ASSISTANT Legally authenticated by ROSAURA LEE 2020-06-17 08: 31:40 2020-06-16 TRINA WAYNE BHSSET 10:24:20-00:00 [place] [address] Patient Name: ARTIE WARREN Patient#: [id number] Admission Date: 06/15/2020 Date of : 1980 Age/Gender: 40/M HSSV/RM/BED: [facility]/301/G Admitting Phys: Shaggy Gaytan MD PROGRESS NOTE DATE: 06/16/2020 SUBJECTIVE Patient reports that he is depressed. He denies suicidal thoughts or homicidal thoughts. Denies hallucinations. Reports that hi s appetite is poor, but he does report that people in the day room are talk ing about him, and that he does not feel like he can go in there. OBJECTIVE Patient is alert and oriented. His affect is fla t. He is somewhat disheveled, although he is lying in bed at point of contact. He has been noted by staff interacting with unseen and unheard others. No o ther distress noted. ASSESSMENT Substance-induced mood disorder, substance use d isorder. PLAN Continue current treatment plan. DICTATED BY: Henry Wayne PMNATHENP, Shaggy Gaytan MD TT: 06/16/2020 10:24:20 JS/MODL /[id number] Electronically Authenticated by: Dr. Shaggy Gaytan on 06/17/2020 08:31 AM ACCOUNT MANAGEMENT ASSISTANT Legally authenticated by ROSAURA LEE 2020-06-17 08: 31:35 2020-03-24 SHAGGY GAYTAN BHSSET 14:05:31-00:00 [place] [address] Patient Name: ARTIE WARREN Patient#: [id number] Admission Date: 03/20/2020 Discharge Date: Age/Gender: 40/M Date of : 1980 HSSV//BED: [facility]/304/F Admitting Phys: Shaggy Gaytan MD DISCHARGE SUMMARY DATE OF ADMISSION: 03/20/2020 DATE OF DISCHARGE: 03/24/2020 ADMISSION DIAGNOSIS Major depressive disorder. DISCHARGE DIAGNOSES Substance use disorder and major depressive diso rder, recurrent, severe with psychotic features and substance-induced psychos is. REASON FOR HOSPITALIZATION Acute paranoid and grandiose erotomanic delusion s in the context of acute substance use with cocaine and non med complianc e and suicidal homicidal ideation toward family based delusions. HOSPITAL COURSE Artie Warren is a 40-year-old male w ith a past psych history of cocaine use disorder, major depression, recurren t, severe, with psychotic features, and substance-induced psychosis, who p resents for acute psychotic behavior and psychotic presentation on multiple persecutory paranoid or automatic grandiose delusions and suicidal and h omicidal ideation toward family all in the context of acute substance abuse with cocaine and chronic abuse with multiple stimulants, history of severe n on med compliance and homelessness and poor social support and multiple present delusio ns. Patient on initial presentation was very paranoid and had significa nt elevated mood with irritable affect. Patient was very open about his delusion s and had multiple persecutory paranoid erotomanic and grandiose and jealous de lusions all regarding his family and that his HI was mainly towards family and de nied SI on admission. The patient did deny auditory or visual hallucinatio n as well. However, he was seen responding to internal stimuli. The patient gume oreilly was started on Risperdal therapy and lithium therapy which was his previo us discharge medication and saw significant improvement overall with mood immedi ately. Risperdal was eventually titrated to 2 mg b.i.d. and saw subsequent resol ution of paranoia and persecutory erotomanic delusions. However, patie nt still remained mildly grandiose, but his affect significantly improved , and his cognition also improved to baseline. We did talk about possible housing options for patient given patient has had multiple previous [facility] up stays and did not complete them, and patient therefore in recent years had multiple denial to [facility] placement. The patient did eventually state that he does have a rehab facility that his family has set up for him in [place] and will go upon discharge and such is a much better disposition than snf and ot her, and therefore, discharge plan was able [facility] and that he will be screened for his residential treatment a fter discharge. The patient overall did not have any issues on the unit and did not require restraints or Legally authenticated by CONNIE CÁRDENAS 2020- 12-07 05:19:27 emergency IM. LABORATORY DATA Hepatitis C screen was negative. HIV screen nega tive. Lipid panel was elevated with cholesterol 210, triglyceride 174, and LDL 127. [place] on initial presentation was less than 0.2 suggesting non me d compliance. A1c 4.9. UDS in the ED was positive for cocaine. TREATMENT PROVIDED DURING ADMISSION Psychopharmacological management, individual charles up activity, milieu therapy, safety assessment, discharge planning, and treat ment team meetings. MENTAL STATUS EXAM At discharge, appearance groomed. Attitude was c ooperative and pleasant. Orientation A and O x4. Speech normal rate, rhyt hm, volume. Mood was euthymic. Affect was congruent. Thought process is logical , linear, and coherent. Suicidal ideation denied. Homicidal ideation den ied. Auditory and visual hallucination denied. Delusions, only very mild persecutory and grandiose delusions remain; however, patient wou ld not act upon them. Insight is significantly improved at baseline. Judgment at baseline. PLAN The patient at this time will be discharged. He will pursue residential substance abuse rehab in [place], [place]. The patie nt has been referred to [facility] in [place], [place], and an [facility] screening with date and time set for April 01, 2020, for 3 p.m. which patient is very receptive and agreed that he will proceed with [facility] and get residenti al substance abuse treatment. One previous referral was made to [facility] [place]. However, they informed that Medicaid does not provide treatmen t for cocaine use disorder, and patient was denied at that time, but at this time, patient is referred to [facility] screening and with pursuit [facility] in [place], [place]. Patient otherwise was in agreement with discharg e plan. Stated that should he experience any worsening symptoms in the future, he will return to the nearest ER department immediately. DISCHARGE MEDICATIONS Risperdal 2 mg p.o. b.i.d., lithium 300 mg b.i.d . Both has been provided with a 30-day supply with no refill. DICTATED BY: MD Melia Lilly MD TT: 03/24/2020 14:05:31 ZS/MODL /[id number] Electronically Authenticated and Edited by: Melia Mensah MD on 03/24/2020 05:19 PM ACCOUNT MANAGEMENT ASSISTANT Legally authenticated by CONNIE CÁRDENAS 03-24 05:19:27 2020-03-23 ODALIS LI 18:07:14-00:00 [place] [address] Patient Name: ARTIE WARREN Patient#: [id number] Admission Date: 03/20/2020 Date of : 1980 Age/Gender: 40/M HSSV/RM/BED: ACP/304/F Admitting Phys: Shaggy Gaytan MD PROGRESS NOTE DATE: 03/23/2020 Note written on behalf of Dr. Mensah is Artie Warren #[id number] patient was seen in his room today for exam and was minimall y interactive. He states that he is doing well and denies any concerns today. He his affect continues to appear dysphoric, but he denies any SI, HI, AVH. He continues to be interested in going to rehab on discharge. ASSESSMENT 1. Major depressive disorder, severe, recurrent, with psychotic features. 2. Substance use disorder, severe, dependent on cocaine. We will continue the patient's medicines as is, since he is continuin g to improve in his mood and overall symptoms. Patient would like to be d ischarged to a rehab, if possible, and we will continue to work on his nubia portillo plan. DICTATED BY: MD Melia Mcmillan MD TT: 03/23/2020 18:07:14 EV/MODL /[id number] Electronically Authenticated by: Melia Mensah MD on 03/23/2020 08:46 PM ACCOUNT MANAGEMENT ASSISTANT Legally authenticated by CONNIE CÁRDENAS 03-23 08:46:23 2020-03-22 ODALIS LI BHSSET 14:18:28-00:00 [place] [address] Patient Name: ARTIE WARREN Patient#: [id number] Admission Date: 03/20/2020 Date of : 1980 Age/Gender: 40/M HSSV/RM/BED: [facility]/304/F Admitting Phys: Shaggy Gaytan MD PROGRESS NOTE DATE: 03/22/2020 Today patient reports that he believes he is fee ling better than on initial presentation. He states that he is feeling francisco r in regard to his anger. He does continue to endorse suicidal ideation, but denies any current plan. He also denies any HI, AVH. The patient appears to have a blunted and dysphoric affect but appears to have an improvement from h is initial presentation. He appears less agitated on assessment and reports tolerating his medications well. The patient is interested in going to rehab upon discharge, but overall still feels that he is depressed. He denies any other concerns at this time. ASSESSMENT 1. Major depressive disorder, severe, recurrent, with psychotic features. 2. Substance use disorder, severe, dependence on cocaine. PLAN We will continue the patient's medications, as boo seymour just had a recent increase in his Risperdal. The increased dose in Risperdal boo as appeared to improve the patient's auditory hallucinations, as he is curr ently denying them today. We will continue to monitor this throughout the wee kend and any improvement in his overall mood and affect. DICTATED BY: MD Melia Mcmillan MD TT: 03/22/2020 14:18:28 EV/MODL /[id number] Electronically Authenticated by: Melia Mensah MD on 03/23/2020 08:46 PM ACCOUNT MANAGEMENT ASSISTANT Legally authenticated by CONNIE CÁRDENAS 03-23 08:46:26 2020-03-21 SHAGGY GAYTAN 15:01:43-00:00 [place] [address] Patient Name: ARTIE WARREN Patient#: [id number] Admission Date: 03/20/2020 Date of : 1980 Age/Gender: 40/M HSSV/RM/BED: ACP/304/F Admitting Phys: Shaggy Gaytan MD PROGRESS NOTE DATE: 03/21/2020 I spoke with Artie today. He is much calmer bushra n yesterday. His affect is much more controlled, is no longer actively labi le, dysphoric. His thought process significantly slowed down too. He actual ly looks somewhat blunted as he endorses some depression, but he does endorse si gnificant improvement overall with his thought process. There is still signifi cant delusions about his family, but now is mainly persecutory and parano id and rather manic, and patient this time denies SI, HI and stated that he no lo nger wants family, but rather just to pursue legal recourses wh ich suggests some improvement with his paranoia. At this time, we will further increase Risperdal given patient was still seen responding to internal stimuli and al though he denies this, but he was definitely interacting with perceived audito ry stimuli, and we will be increasing Risperdal to address this. Otherwise, we will continue treatment plan. DIAGNOSIS 1. Major depressive disorder, severe, recurrent, with psychosis. 2. Substance use disorder, severe, dependence on cocaine. PLAN Increase Risperdal to 2 mg b.i.d. to further add ress residual psychosis and delusion. We will keep lithium at current dose g iven mood stability has been established. We will mainly focus on psychosis at present. Otherwise, we will cont inue monitoring for symptom improvement. DICTATED BY: MD Melia Lilly MD TT: 03/21/2020 15:01:43 ZS/MODL /[id number] Electronically Authenticated and Edited by: Melia Mensah MD on 03/22/2020 01:59 AM ACCOUNT MANAGEMENT ASSISTANT Legally authenticated by CONNIE CÁRDENAS 03-22 01:59:21 2019-05-15 MELIA MENSAH BHSSET 15:52:14-00:00 [place] [address] Patient Name: ARTIE WARREN Patient#: [id number] Admission Date: 05/09/2019 Discharge Date: 05/15/2019 Age/Gender: 39/M Date of : 1980 SV//BED: ADP/227/F Admitting Phys: Melia Mensah MD DISCHARGE SUMMARY DATE OF ADMISSION: 05/09/2019 DATE OF DISCHARGE: 05/15/2019 ADMISSION DIAGNOSES 1. Unspecified psychotic disorder. 2. Rule out schizophrenia. 3. Rule out substance induced psychotic disorder . 4. Rule out major depressive disorder with psych otic features. DISCHARGE DIAGNOSES 1. Major depressive disorder, recurrent, severe, with psychotic features. 2. Substance use disorder, severe. REASON FOR HOSPITALIZATION Psychosis and suicidal ideation. HOSPITAL COURSE Artie Warren is a 39-year-old male who admitte d voluntarily for suicidal ideation with plan to eat raw cashews. He had de pressed mood, hypervigilance, anxiety, paranoid and delusional thinking. No au ditory or visual hallucinations, homicidal ideation, plan, or int ent. He believed that his brother was hacking his phone and computer in an effort to steal his identity and assume his presence. He believed his ex-girl friend believed his brother was him. This caused him significant distress. The p jason was prescribed Zoloft 100 mg q.a.m. in the outpatient setting. This wa s continued and increased to 200 mg q.a.m. during the admission. The patient also had Zyprexa added to his regimen. He stated that Zyprexa left him with to o much daytime sedation so it was changed to Abilify. He tolerated starting Ab ilify 5 mg daily. This was increased to 10 mg daily during the admission. T he patient did see a decrease in his depression and decrease in feelings of pa ranoia though delusional belief system stayed intact. The patient did eventually give a urine drug sample after 3 days of admission, which showed positive for c ocaine. The patient was confronted about this, but adamantly den ied the existence of a substance abuse disorder, only stating that he had used cocaine once to relieve depression just prior to the admission. The patient was behavior ally appropriate on the unit. He attended groups willingly. He did not have be havioral issues. Did not require the use of emergency restraint or emerge ncy IM medication throughout. The patient was considered for the [facility], b ut he was denied admittance there due to several failed trials of [facility] prior to this admission. LABORATORY DATA CMP was within normal limits including liver and kidney function. CK was 303. Lipid panel showed triglycerides of 156, LDL of 116. Blood alcohol less than 10. TSH 1.25. CBC with differential showed hemog lobin of 18.2, otherwise within normal limits. RPR nonreactive. Hemoglobi n A1c 4.9. Urinalysis was Legally authenticated by CONNIE CÁRDENAS 2020- 01-28 05:42:46 clear. Hepatitis C and HIV screens negative. Uri ne drug screen positive for cocaine. TREATMENT PROVIDED DURING ADMISSION 1. Psychopharmacological management. 2. Individual, group, activity, and milieu thera py. 3. Safety assessments. 4. Discharge planning. 5. Treatment team meetings. MENTAL STATUS EXAM AT DISCHARGE Calm, cooperative. Fair eye contact. Speech norm al rate and volume. No psychomotor agitation or retardation. Mood is eu thymic. Affect is constricted, congruent to mood, appropriate and nonlabile. Th oughts are linear and goal directed. Denies suicidal or homicidal ideation, plan, or intent. Denies auditory or visual hallucinations and paranoid i deation, still with delusions of persecution. Cognition is intact. Insight and ju dgment are improved. PLAN Patient will be discharged to [facility]. He is referred to [facility] with appointment there on 05/17/2019, at 10:30 a.m. He was given a prescription for a 30-day supply of discharge me dication. He was in agreement with the discharge plan, and he stated that shou ld he experience new or worsening symptoms in the future, including suic idal or homicidal ideation, plan, or intent, he would call 911 or return to the nearest emergency department immediately. DISCHARGE MEDICATIONS 1. Zoloft 200 mg q.a.m. 2. Abilify 10 mg daily. Melia Mensah MD TT: 05/15/2019 15:52:14 MG/MODL /[id number] Electronically Authenticated and Edited by: Romeo Mensah MD on 05/15/2019 05:42 PM ACCOUNT MANAGEMENT ASSISTANT Legally authenticated by CONNIE CÁRDENAS 05-15 05:42:46 2019-05-14 MELIA MENSAH BHSSET 17:09:25-00:00 [place] [address] Patient Name: ARTIE WARREN Patient#: [id number] Admission Date: 05/09/2019 Date of : 1980 Age/Gender: 39/M HSSV/RM/BED: ADP/227/F Admitting Phys: Melia Mensah MD PROGRESS NOTE DATE: 05/14/2019 The patient presents in fair spirits today. He i s no longer reporting suicidal ideation. Mood is improved. Delusions are fixed regarding his family, and especially his brother stealing his identity. Th e patient denies homicidal ideation towards others. He was confronted about urine drug screen positive for cocaine. The patient looked surprised, and becam e defensive. The patient stated that he only used cocaine once just prior to the admission. The patient minimizes other substance use, and rejects offer for substance abuse treatment. The patient is compliant with medication, not re porting adverse side effects. ASSESSMENT 1. Major depressive disorder, recurrent, severe, with psychotic features. 2. Substance use disorder, severe. PLAN Continue current medications. Discharge pending safe placement. Melia Mensah MD TT: 05/14/2019 17:09:25 MG/MODL /[id number] Electronically Authenticated by: Romeo Mensah MD on 05/14/2019 05:19 PM ACCOUNT MANAGEMENT ASSISTANT Legally authenticated by CONNIE CÁRDENAS 05-14 05:19:11 2019-05-13 ZULEMA LOJA 20:06:52-00:00 [place] [address] Patient Name: ARTIE WARREN Patient#: [id number] Admission Date: 05/09/2019 Date of : 1980 Age/Gender: 39/M HSSV/RM/BED: ADP/227/F Admitting Phys: Melia Mensah MD PROGRESS NOTE DATE: 05/13/2019 SUBJECTIVE The patient reports that he is feeling good toda y. He is more comfortable here and he feels that he is getting better every day . He still strongly believes that his brother and his family have been steali ng his identity and impersonating him, and he is going to contact in sheree to get them to stop it once he is released from here. MENTAL STATUS EXAM He is alert and oriented x4. His mood is good. H is affect is somewhat elevated. He is talking quite a bit. Speech regu lar rate, rhythm, and volume. Thought process is linear. Thought content negat gurmeet for SI, HI. He does endorse a strong belief that his family is imper sonating him. Insight and judgment impaired. ASSESSMENT AND PLAN Continue present medications as presently prescr ibed and continue to monitor for improvement. DICTATED BY: MD Melia De La Cruz MD TT: 05/13/2019 20:06:52 MH/MODL /[id number] Electronically Authenticated by: Romeo Mensah MD on 05/13/2019 08:30 PM ACCOUNT MANAGEMENT ASSISTANT Legally authenticated by CONNIE CÁRDENAS 05-13 08:30:23 2019-05-13 ZULEMA LOJA 03:52:39-00:00 [place] [address] Patient Name: ARTIE WARREN Patient#: [id number] Admission Date: 05/09/2019 Date of : 1980 Age/Gender: 39/M HSSV/RM/BED: ADP/227/F Admitting Phys: Melia Mensah MD PROGRESS NOTE DATE: 05/12/2019 Today, the patient reports that he is actually f eeling better. He is feeling more comfortable on the unit. He feels that he i s frustrated with the situation that he is in. He says that his brother keeps im personating him, is stealing his identity, and this is a deterrent to him fin ding a stable place to live because he is always having to move to different places to escape his brother who is stealing his identity. It is unsure of ho w much of what he is saying is true or if this is all a delusional belief. He h as been medication compliant and denies any side effects. MENTAL STATUS EXAM He is alert and oriented x4. He says his mood is improving. His affect is somewhat elevated. His speech regular rate, rhyt hm, and volume. Thought process linear at times, but he will derail duri ng interview. Thought content negative for SI, HI. He does endorse a strong be lief that his brother is stealing his identity and impersonating him. Micheline ears very delusional. Insight and judgment are impaired. ASSESSMENT AND PLAN Continue present medications as Abilify was rece ntly increased. He is tolerating it and his mood is also improving. No change in diagnosis at this time. DICTATED BY: MD Melia De La Cruz MD TT: 05/13/2019 03:52:39 MH/MODL /[id number] Electronically Authenticated and Edited by: Romeo Mensah MD on 05/13/2019 08:30 PM ACCOUNT MANAGEMENT ASSISTANT Legally authenticated by CONNIE CÁRDENAS 05-13 08:30:08 2019-05-11 MELIA MENSAH 18:35:26-00:[address] [address] Patient Name: ARTIE WARREN Patient#: [id number] Admission Date: 05/09/2019 Date of : 1980 Age/Gender: 39/M HSSV/RM/BED: ADP/227/F Admitting Phys: Melia Mensah MD PROGRESS NOTE DATE: 05/11/2019 The patient was discussed in treatment team meet ing today, including goals of improving insight into symptoms and compliance w ith medication. The patient has been appropriate on the unit. He is paranoid abo ut peers. The patient remains delusional about his brother. The patient is hyp eractive and anxious in evaluation. He is compliant with medication. No adverse side effects from current medications. He does deny suicidal and h omicidal thoughts at this point. The patient's symptoms do appear uncontro lled in regard to psychosis. ASSESSMENT 1. Major depressive disorder, recurrent, severe, with psychotic features. 2. Rule out schizophrenia. PLAN Increase Abilify to 10 mg daily. Melia Mensah MD TT: 05/11/2019 18:35:26 MG/MODL /[id number] Electronically Authenticated by: Romeo Mensah MD on 05/11/2019 09:07 PM ACCOUNT MANAGEMENT ASSISTANT Legally authenticated by CONNIE CÁRDENAS 05-11 09:07:24 2019-05-10 MELIA MENSAH 18:41:53-00:[address] [address] Patient Name: ARTIE WARREN Patient#: [id number] Admission Date: 05/09/2019 Date of : 1980 Age/Gender: 39/M HSSV/RM/BED: ADP/227/F Admitting Phys: Melia Mensah MD PROGRESS NOTE DATE: 05/10/2019 The patient presents in fair spirits initially. He states that he feels much better today. Affect is improved, though still a nxious. The patient has been attending groups, isolating from peers. The charly ent denies suicidal and homicidal thoughts. He has been tolerating medic ation without any adverse side effects. When I asked the patient if he was stil l having negative thoughts about his brother, the patient became quite irri tated and upset, stating that he would never talk to his family because he does n ot trust them. Later in the day, I was informed that the patient has been ex tremely paranoid about peers on the unit, believing they are talking about him a nd saying derogatory things about him. At this time, we have patient listed with diagnosis of MDD with psychotic features. This may be changed to schiz ophrenia given degree of paranoia and delusional thinking present in this patient. ASSESSMENT Major depressive disorder, recurrent, severe, wi thout psychotic features. PLAN We will change Zyprexa to Abilify today given patient's concern that he voiced regarding potential weight gain on Zyprexa. Melia Mensah MD TT: 05/10/2019 18:41:53 MG/MODL /[id number] Electronically Authenticated and Edited by: Romeo Mensah MD on 05/10/2019 09:04 PM ACCOUNT MANAGEMENT ASSISTANT Legally authenticated by CONNIE CÁRDENAS 05-10 09:04:51
[2022-09-05 15:35] LABS: Absolute Lymphocytes (CBC) 2.3 K/uL (0.7-4.9); Hematocrit 49.5 % (39.6-49.0); Lymphocytes % 29.4 % (15.3-44.8); MCV 95.9 fL (80-100); MPV 8.4 fL (7.6-11.3); RBC Red Blood Cell Count 5.16 M/uL (4.33-5.43)
[2022-09-05 15:52] LABS: Albumin 3.7 g/dL (3.4-5.0); Bilirubin Total 0.5 mg/dL (0.2-1.0); Potassium 4.1 mEq/L (3.5-5.1); Protein, Total 7.9 g/dL (6.4-8.2)
--- NOTE | 2022-09-05 16:16 | RAD REPORT ---
EXAM DESCRIPTION: CT - Pelvis W/Cont - 09/05/2022 4:07 pm CLINICAL HISTORY: rectal pain and bleeding Pain and swelling COMPARISON: <Comparisons> TECHNIQUE: All CT scans are performed using dose optimization technique as appropriate and may inclu de automated exposure control or mA/KV adjustment according to patient size. FINDINGS: Small fat containing left inguinal hernia. Rectosigmoid colon is grossly unremarkable. No pelvic mass, adenopathy or fluid collections. IMPRESSION: No significant intrapelvic abnormality is discerned.
--- NOTE | 2022-09-05 16:30 | EDPHYS ---
Physician Documentation [facility] Name: Artie García Age: 42 yrs Sex: Male : 1980 Arrival Date: 09/05/2022 Time: 14: Bed 15 Private MD: ED Physician Migel Carey HPI: 09/05 14:52 This 42 yrs old Male presents to ER via Ambulatory with complaints of Rectal Bleeding. jmm 14:52 The patient presents to the emergency department with bleeding from the rectum/anus, jmm that is mild. Onset: The symptoms/episode began/occurred gradually, 10 year(s) ago. Modifying factors: The symptoms are alleviated by nothing, The symptoms are aggravated by nothing. This is a 42 year old male with a history of bipolar, depression that presents to the ED with complaints of rectal bleeding which has been intermittent over the past 10 years. States his pcp is concerned he may have a fissure. Denies fever, denies abdominal pain. . Historical: - Allergies: 14:37 Amoxicillin; iw 14:37 Pristiq; iw - Home Meds: 14:37 aripiprazole 30 mg oral tablet daily [Active]; lithium ER 300 mg twice a day [Active]; iw trazodone 100 mg Oral tablet nightly [Active]; - PMHx: 14:37 Bipolar disorder; Depressive disorder; iw - PSHx: 14:37 Cholecystectomy; left middle finger; Tonsillectomy; Adenoid excision; iw - Immunization history:: Adult Immunizations. - Social history:: Smoking status: Patient reports the use of cigarette tobacco products. ROS: 14:52 Constitutional: Negative for fever, chills, and weight loss, Cardiovascular: Negative jmm for chest pain, palpitations, and edema, Respiratory: Negative for shortness of breath, cough, wheezing, and pleuritic chest pain. 14:52 Abdomen/GI: Positive for rectal bleeding. 14:52 : Positive for 14:52 All other systems are negative. Exam: 14:52 Constitutional: This is a well developed, well nourished patient who is awake, alert, jmm and in no acute distress. Head/Face: atraumatic. Eyes: EOMI, no conjunctival erythema appreciated ENT: Moist Mucus Membranes Neck: Trachea midline, Supple Chest/axilla: Normal chest wall appearance and motion. Cardiovascular: Regular rate and rhythm. No edema appreciated Respiratory: Normal respirations, no respiratory distress appreciated Abdomen/GI: Non distended Back: Normal ROM 14:52 Skin: General appearance color normal MS/ Extremity: Moves all extremities, no obvious deformities appreciated, no edema noted to the lower extremities Neuro: Awake and alert Psych: Behavior is normal, Mood is normal, Patient is cooperative and pleasant 14:52 Abdomen/GI: Inspection: abdomen appears normal, Palpation: Rectal exam: is unremarkable. Vital Signs: 14:36 BP 133 / 83; Pulse 86; Resp 16; Temp 98.3; Pulse Ox 97% on R/A; Weight 99.79 kg; Height iw 6 ft. 0 in. ; Pain 6/10; 15:45 BP 135 / 91; Pulse 69; Resp 18; Pulse Ox 98% on R/A; eh3 14:36 Body Mass Index 29.84 (99.79 kg, 182.88 cm) iw 14:36 Pain Scale: Adult iw MDM: 14:52 Patient medically screened. [facility] 16:27 Differential diagnosis: hemorrhoids, abscess. Data reviewed: vital signs, nurses notes, [facility] radiologic studies, CT scan. I considered the following discharge prescriptions or medication management in the emergency department Medications were administered in the Emergency Department. See MAR. Counseling: I had a detailed discussion with the patient and/or guardian regarding: the historical points, exam findings, and any diagnostic results supporting the discharge/admit diagnosis, lab results, radiology results, the need for outpatient follow up, to return to the emergency department if symptoms worsen or persist or if there are any questions or concerns that arise at home. 09/05 14:55 Order name: CBC with Diff; Complete Time: 15:37 [facility] 09/05 14:55 Order name: CMP; Complete Time: 16:00 [facility] 09/05 14:55 Order name: Lipase; Complete Time: 16:00 [facility] 09/05 14:55 Order name: CT Pelvis w cont; Complete Time: 16:19 [facility] 09/05 14:55 Order name: IV Saline Lock; Complete Time: 15:36 [facility] 09/05 14:55 Order name: Labs collected and sent; Complete Time: 15:36 [facility] Administered Medications: No medications were administered Disposition Summary: 09/05/22 16:29 Discharge Ordered Location: Home [facility] Condition: Stable [facility] Diagnosis - Rectal Bleeding [facility] Followup: [facility] - With: Sloan Loredo MD - When: 2 - 3 days - Reason: Recheck today's complaints, Continuance of care, Re-evaluation by your physician Discharge Instructions: - Discharge Summary Sheet [facility] - Rectal Bleeding [facility] Forms: - Medication Reconciliation Form [facility] - Thank You Letter [facility] - Antibiotic Education [facility] - Prescription Opioid Use [facility] Prescriptions: - Anusol-HC 25 mg Rectal Suppository - insert 1 suppository by RECTAL route every 12 hours As needed; 20 suppository; [facility] Refills: 0, Product Selection Permitted Signatures: Dispatcher [employer] Jorje Cummins PA PA jmm Williams, Irene, RN RN iw Corrections: (The following items were deleted from the chart) 14:40 14:37 Allergies: No Known Allergies; iw iw
--- NOTE | 2022-09-05 16:30 | ER ---
Nurse's Notes [facility] Name: Artie García Age: 42 yrs Sex: Male : 1980 Arrival Date: 09/05/2022 Time: 14:21 Bed 15 Private MD: Diagnosis: Rectal Bleeding Presentation: 09/05 14:36 Chief complaint: Patient states: rectal bleeding and irritation, has had similar iw symptoms in past, given hemorrhoids ointment but it doesn't work, flared up today. Coronavirus screen: At this time, the client does not indicate any symptoms associated with coronavirus-19. Ebola Screen: Patient negative for fever greater than or equal to 101.5 degrees Fahrenheit, and additional compatible Ebola Virus Disease symptoms Patient denies exposure to infectious person. Patient denies travel to an Ebola-affected area in the 21 days before illness onset. No symptoms or risks identified at this time. Initial Sepsis Screen: Does the patient meet any 2 criteria? No. Patient's initial sepsis screen is negative. Does the patient have a suspected source of infection? No. Patient's initial sepsis screen is negative. Risk Assessment: Do you want to hurt yourself or someone else? Patient reports no desire to harm self or others. Onset of symptoms was September 05, 2022. 14:36 Method Of Arrival: Ambulatory iw 14:36 Acuity: SOPHIE 4 iw 14:57 Acuity: SOPHIE 3 iw Triage Assessment: 14:45 General: Appears in no apparent distress. uncomfortable, Behavior is cooperative, eh3 appropriate for age. Pain: Denies pain. Neuro: Level of Consciousness is awake, alert, obeys commands, Oriented to person, place, time, situation. Cardiovascular: Capillary refill < 3 seconds Patient's skin is warm and dry. Respiratory: Airway is patent Respiratory effort is even, unlabored, Respiratory pattern is regular, symmetrical. GI: Abdomen is round non-distended. Historical: - Allergies: 14:37 Amoxicillin; iw 14:37 Pristiq; iw - Home Meds: 14:37 aripiprazole 30 mg oral tablet daily [Active]; lithium ER 300 mg twice a day [Active]; iw trazodone 100 mg Oral tablet nightly [Active]; - PMHx: 14:37 Bipolar disorder; Depressive disorder; iw - PSHx: 14:37 Cholecystectomy; left middle finger; Tonsillectomy; Adenoid excision; iw - Immunization history:: Adult Immunizations. - Social history:: Smoking status: Patient reports the use of cigarette tobacco products. Screenin:46 [facility] ED Fall Risk Assessment (Adult) Score/Fall Risk Level 0 - 2 = Low Risk. Abuse eh3 screen: Denies threats or abuse. Denies injuries from another. Nutritional screening: No deficits noted. Tuberculosis screening: No symptoms or risk factors identified. Assessment: 14:46 Reassessment: No changes from previously documented assessment. See triage assessment. eh3 15:45 Reassessment: Patient appears in no apparent distress at this time. Patient and/or eh3 family updated on plan of care and expected duration. Pain level reassessed. Patient is alert, oriented x 3, equal unlabored respirations, skin warm/dry/pink. Vital Signs: 14:36 BP 133 / 83; Pulse 86; Resp 16; Temp 98.3; Pulse Ox 97% on R/A; Weight 99.79 kg; Height iw 6 ft. 0 in. ; Pain 6/10; 15:45 BP 135 / 91; Pulse 69; Resp 18; Pulse Ox 98% on R/A; eh3 14:36 Body Mass Index 29.84 (99.79 kg, 182.88 cm) iw 14:36 Pain Scale: Adult ED Course: 14:23 Patient arrived in ED. 4 14:37 Triage completed. iw 14:38 Jorje Ferguson PA is PHCP. [facility] 14:38 Migel Carey MD is Attending Physician. [facility] 14:40 Arm band placed on. iw 14:44 Adela Jennings, JOSEE is Primary Nurse. 3 14:46 Patient has correct armband on for positive identification. Bed in low position. Call 3 light in reach. Side rails up X2. Pulse ox on. NIBP on. 16:08 CT Pelvis w cont In Process Unspecified. EDMS 16:29 Sloan Loredo MD is Referral Physician. [facility] Administered Medications: No medications were administered Outcome: 16:29 Discharge ordered by . clark 17:01 Patient left the ED. 3 Signatures: Dispatcher [employer] EDMS Jorje Ferguson PA PA jmm Williams, Irene, RN RN Melanie Aguilar [id number] Adela Jennings RN RN eh3 Corrections: (The following items were deleted from the chart) 14:40 14:37 Allergies: No Known Allergies; iw iw
[2022-09-05 17:06] VITALS: TEMP 98.3
[2022-09-05 17:07] VITALS: BP 135/91; O2SAT 98
== END 2022-09-05 17:01 | disposition home or self-care (01) ==
LOC: ER 14:21
DX: K62.5 Hemorrhage of anus and rectum (principal); Z88.1 Allergy status to other antibiotic agents; Z88.8 Allergy status to other drugs, medicaments and biological substances; Z72.0 Tobacco use
CPT/HCPCS: 85025; 36415; 83690; 80053; 72193; Q9967